=== PATIENT | male | born 1970 | race Caucasian/White ===

== ENCOUNTER 2024-07-26 09:01 | Emergency (ER) | payer OTHER, SELFPAY ==
--- NOTE | ~2024-07-26 | CT_ITS ---
EXAMINATION: CTA chest PE protocol DATE: 07/26/2024 11:24 INDICATION: Chest pain. Shortness of breath. TECHNIQUE: Computed tomography angiography (CTA) of the chest was performed with 100 mL Omnipaque-350 intravenous contrast timed to evaluate the pulmonary arteries. Coronal maximum intensity projection 3D-reconstructions were created by the technologist. Automated exposure control and iterative reconst ruction technique were employed. The dose-length product was 833.74 mGy-cm. COMPARISON: Chest 2 views 07/26/2024 FINDINGS: There is mild atelectasis on the left. No pleural effusion. The heart size is normal. No pe ricardial effusion. There is no pulmonary embolus. There is an 18 mm mass in left adrenal gland measu ring low attenuation, consistent with an adenoma. There is a 6 mm cyst in the liver. There is severe cervical spondylosis and mild thoracic spondylosis. There is levoscoliosis of upper thoracic spine. IMPRESSION: 1. No pulmonary embolus. Reviewed, dictated and finalized at location A. OWS SYSTEM ADMIN IMPRESSION: 1. No pulmonary embolus.
--- NOTE | ~2024-07-26 | XR_ITS ---
EXAMINATION: XR chest 2V DATE: 07/26/2024 09:31 INDICATION: Chest pain. Cough. Congestion. TECHNIQUE: Frontal and lateral views of the chest were obtained. COMPARISON: None. FINDINGS: There is mild atelectasis in left lower lung zone. No pleural effusion or pneumothorax. The heart size is normal. IMPRESSION: 1. Mild atelectasis in left lower lung zone. Reviewed, dictated and finalized at location A. [employer] QC
--- OUTSIDE RECORDS SUMMARY | 2024-07-26 09:05 | XMS_ITS | Continuity of Care Document ---
Author Organization [facility] Address [address] [place] [id number] Phone Care Team Providers Care Crepe Sole Scourer Name Role Phone Paulo Rm MD Unavailable Unavailable Allergies, Adverse Reactions, Alerts Substance Reaction Status Criticality No Known allergies Medications Medication Instructions Dosage Effective Dates (start - stop) Status Comments Metoprolol Tartrate 25 mg Tab - Active Procedures Procedure Date Eye Exam Established Pt After Cataract Laser Surgery No Charge Refraction Post-op Follow-up Visit Post-op Follow-up Visit Post-op Follow-up Visit Remove Cataract, Insert Lens Limbal Relaxing Incision IOLMaster Office/outpatient Visit, [facility] Echo Exam Of Eye Advance Directives Directive Yes / No Effective Date File Name Resuscitation Not Answered N/A N/A Life Support Not Answered N/A N/A Intubation Not Answered N/A N/A Antibiotics Not Answered N/A N/A IV Fluid Support Not Answered N/A N/A Tube Feed Not Answered N/A N/A Other Directive N/A N/A WARNING:The information contained in this section is historical and is provided for information only and does not constitute a legal document or any assurance that the information is still accurate. Please verify the information with the reinoso of the legal document before using it for clinical purposes. Encounters Encounter Description Practice Location Reason(s) For Visit Diagnoses Date Provider Providers Copied on [facility], [address], [place], [place], [address], [place] tel:[phone] [place] Professional blurry vision (chief complaint) No Information Apr-1 0-201 3 Jag Bates. [address] [facility], [address], [place], [place], [address], [place]. tel:[phone] [facility], [address], [place], [place], [address], [place] tel:[phone] [place] Professional No Information Apr-0 1-201 3 Jag Bates. [address] [facility], [address], [place], [place], [address], [place]. tel:[phone] [facility], [address], [place], [place], [address], [place] tel:[phone] [place] Professional No Information Apr-0 8-201 0 Sarahy Angy. [address], [address], [place], [address], [place]. tel:[phone] [facility], [address], [place], [place], [address], [place] tel:[phone] [place] Professional No Information Mar-1 8-201 0 Sarahy Angy. [address], [address], [place], [address], [place]. tel:[phone] [facility], [address], [place], [place], [address], [place] tel:[phone] [place] Professional No Information Mar-1 1-201 0 Sarahy Angy. [address], [address], [place], [address], [place]. tel:[phone] [facility], [address], [place], [place], [address], [place] tel:[phone] [facility] [place] No Information Aug- 0-201 0 Sarahy Angy. [address], [address], [place], [address], [place]. tel:[phone] [facility], [address], [place], [place], [address], [place] tel:[phone] SEC [place] No Information Aug-0 4-201 0 Sarahy Angy. [address], [address], [place], [address], [place]. tel:[phone] Referring Provider: Angy Weathers, [address], [place], [place], [facility]. tel:[phone] Office/outpa tient Visit, [facility], [address], [place], [place], [address], [place] tel:[phone] [facility] Professional No Information 5-201 0 Sarahy Angy. [address], [address], [place], [address], [place]. tel:[phone] Family History Family Member Type Diagnosis Age At Onset No Information Payers Payer name Insurance type Covered republican ID Rosa todd(s) [facility] CI [id number] Social History Type Description Quantity Date Captured Comments Alcohol Use Details 1 drink weekly Caffeine Use Details 4 cups per day Tobacco Use Status No Information Smoking Status No Information Sex Male Chief Complaint And Reason For Visit From encounter dated '09/15/2012 13:00'. blurry vision (chief complaint) Reason For Referral Reason For Referral No Information History Of Present Illness Encounter Date Complaint History Of Prese nt Illness No Information Functional Status Date Functional Assessmen t No Information Instructions Date Instruction Additional Infor mation clouded pc od-yag pc done - vis postop 20/25 and nl iop - will see Dr. Noriega in a mth Assessments Type Assessment Date No Information Patient Care Teams Name Effective Dates (start - stop) Status Members No Information
--- OUTSIDE RECORDS SUMMARY | 2024-07-26 09:06 | XMS_ITS | Clinical Summary ---
Author Organization [facility] Address [address] [place] [address] Phone Care Team Providers Care Record Changer Tester Name Role Phone SONIA ALCANTARA MD Primary Care Provider [phone] Reason for Visit and Chief Complaint CHART UPDATE Problems Includes: Problems addressed during this encounter and other active Problems All Visits Onset Date Resolved Date Provider Condition S tatus Presence of Artificial Knee Joint 04/21/2023 JADEN Stewart Active Last Documented On 04/21/2023 7:21AM ; [facility] Note: Left TKA on 04/20/[address] 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 DORI León MD Active Last Documented On 1 11:20AM ; [facility] Hypertension Systemic 02/01/2021 DORI HOWARD MD Active Last Documented On 1 11:21AM ; [facility] Plan of Treatment Pending Tests Order Diagnosis Results Due Ordering P rovider Therapy - Physical Therapy Knee Presence of left artificial knee joint 07/20/23 THUY DENSON DO Last Documented On 4 3:35PM ; [facility] Assessments Includes: Assessments from this encounter No Assessments Recorded Medical Equipment - Implanted Devices Includes: Current Devices No Medical Equipment Recorded Medications Includes: Medications discussed during this encounter and other current Medications Discontinued / Stopped on this date JADEN Stewart on 05/04/2023 HYDROcodone-Acetaminophen 7. 5-325 MG Oral Tablet Provider: JADEN Stewart Diagnosis: Presence of left artificial knee joint Last Documented On 07/20/2023 9:56AM By VALERIA ESPOSITO LPN ; [facility] Celecoxib 200 MG Oral Capsule Provider: JADEN Stewart Diagnosis: Presence of left artificial knee joint Last Documented On 07/20/2023 9:56AM By VALERIA ESPOSITO LPN ; [facility] Current Medications (continue as prescribed) Aspirin 81 81 MG Oral Tablet Delayed Release Provider: Diagnosis: Last Documented On 03/30/2023 2:51PM By Lizzie BROWN ; [facility] Metoprolol Tartrate 50 MG Oral Tablet 01/31/2023 Pro vider: JENIFER S DATHU ACNP Diagnosis: Last Documented On 03/30/2023 2:51PM By Lizzie BROWN ; [facility] Medications Administered Includes: Administered Medications from this encounter No Administered Medications Recorded Results Includes: Results discussed during this encounter No Results Recorded For Specified Dates History of Present Illness Includes: History of Present Illness from this encounter No History of Present Illness Recorded Social History No Social History Recorded - Smoking Status Unknown Medical History Includes: Medical History addressed during this encounter No Medical History Recorded Family History Includes: Family History addressed during this encounter No Family History Recorded Review of Systems Includes: Review of Systems from this encounter No Review of Systems Recorded Mental Status Includes: Mental Status from this encounter No Mental Status Recorded Functional Status Includes: Functional Status from this encounter No Functional Status Recorded Physical Exam Includes: Physical Exam from this encounter No Physical Exam Recorded Allergies Includes: Active Allergies Substance Type Reaction Onset Date Resolved Date Statu s Doxycycline Hyclate Allergy Shortness of Breath / Dyspnea 03/30/2023 Active Last Documented On 08/27/2023 2:46PM ; [facility] Note: throat closing Encounters Encounter Provider Location Date Check-In Time Check-Out Time Diagnosis CHART UPDATE THUY DENSON 07/20/2023 11:07AM 11:59PM Insurance Includes: Active Insurance Policies Plan Name Member ID Group # Subscriber Relationship Effect aisha Dates 1 - [facility] [id number] HEAVEN HAIR JR Self Clinical Notes Includes: Clinical Notes from this encounter No Clinical Notes Recorded
--- OUTSIDE RECORDS SUMMARY | 2024-07-26 09:06 | XMS_ITS | Clinical Summary ---
Author Organization [facility] Address [address] [place] [address] Phone Care Team Providers Care Records Analysis Manager Name Role Phone SONIA ALCANTARA MD Primary Care Provider [phone] Reason for Visit and Chief Complaint Date of surgery: 04/20/2023, visit for: exam following treatment, Heaven returns for his left total knee arthroplasty on 04/20/23. He is here basically for a motion check. He has finished all of his formal physical therapy. He returned to work on 07/20/23. At his last visit he was lacking just the last few degrees of motion so he continued to work hard at home to reach this. He reports he is doingvery well without any problems, visit for: Left Knee Pain - The Chief Complaint is: 4.5 MO POST LTKA, PT HAS ALREADY RTW AND HAS COMPLETED THERAPY, NO CONCERNS AND IS DOING WELL Problems Includes: Problems addressed during this encounter and other active Problems All Visits Onset Date Resolved Date Provider Condition S tatus Presence of Artificial Knee Joint 04/21/2023 JADEN Stewart Active Last Documented On 04/21/2023 7:21AM ; [facility] Note: Left TKA on 04/20/[address] 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 He was once again made aware of antibiotic prophylaxis for a total joint to be done throughout his lifetime. He is very pleased with the out come of his surgery. He will be seen back at the one year ebenezer from surgery with repeat radiographs. - Last Documented On 08/27/2023 2:57PM ; [facility] Instructions to patient No reduced physical activity -release to full activities Last Documented On 4 2:54PM ; [facility] Education and Decision Aids were provided during visit for: Patient education about orth opedic activities Last Documented On 4 2:54PM ; [facility] Assessments Includes: Assessments from this encounter Findings Intact left knee prosthesis. - Last Documented On 08/27/2023 2:57PM ; [facility] Instructions Includes: Instructions from this encounter Instructions to patient No reduced physical activity -release to full activities Last Documented On 4 2:54PM ; [facility] Education and Decision Aids were provided during visit for: Patient education about orth opedic activities Last Documented On 4 2:54PM ; [facility] Medical Equipment - Implanted Devices Includes: Current Devices No Medical Equipment Recorded Medications Includes: Medications discussed during this encounter and other current Medications Current Medications (continue as prescribed) Aspirin 81 81 MG Oral Tablet Delayed Release 3 Provider: Diagnosis: Last Documented On 03/30/2023 2:51PM By Lizzie BROWN ; [facility] Metoprolol Tartrate 50 MG Oral Tablet 01/31/2023 Pro vider: JENIFER CARDOSO ACNP Diagnosis: Last Documented On 03/30/2023 2:51PM By Lizzie BROWN ; [facility] Past Medications on file Lovenox 30 MG/0.3ML Injection Solution Prefilled Syringe 04/21/2023 - 05/05/2023 Provider: JADEN Stewart Diagnosis: Presence of left artificial knee joint as directed one injection tw ice a day for 2 weeks after surgery Last Documented On 3 7:36AM By Jaden Manrique PA-C ; [facility] Medications Administered Includes: Administered Medications from this encounter No Administered Medications Recorded Vital Signs Includes: Vital Signs from this encounter Vital Name 08/27/2023 02:47P Height (in) 69 Last Documented: On 08/27/2023 2:47PM ; [facility] Results Includes: Results discussed during this encounter No Results Recorded For Specified Dates History of Present Illness Includes: History of Present Illness from this encounter GISELE HAIR is a 53 year old male. - Allergy list reviewed - Medication list reviewed - No left knee joint pain - No left knee joint swelling - No left knee joint stiffness Social History Description Last Updated Social history unchanged 11/06/2022 Last Documented On 4 2:46PM ; [facility] Tobacco non-user 01/09/2022 Last Documented On 4 2:46PM ; [facility] . alchol-none, tobacco - none, dr stinson- none 09/21/2019 Last Documented On 4 2:46PM ; [facility] Smoking status : Never smoker 08/23/2019 Last Documented On 4 2:46PM ; [facility] Procedures and Surgical History Includes: Procedures from this encounter Procedures Code Diagnosis Performing Provider Service L ocation Service Date Previously treated with Surgery which helped Last Documented On 4 2:50PM ; [facility] Previously treated with Medication-which helped Last Documented On 4 2:50PM ; [facility] Previously treated with Physical Therapy -which helped Last Documented On 4 2:50PM ; [facility] x-ray of knee was performed intact left knee implant Last Documented On 4 2:56PM ; [facility] reviewed a complete knee x-ray with standing vie ws -of left knee [id number] Last Documented On 4 2:56PM ; [facility] RADIOGRAPH READING: Radiogra phs obtained previously of the left knee are reviewed, These show a Georgette PS knee is in good position and alignment. No evidence of loosening Last Documented On 4 2:56PM ; [facility] Medical History Includes: Medical History addressed during this encounter Description Last Updated Prior surgery 08/27/2023 Last Documented On 4 2:57PM ; [facility] Total Left Knee Replacement on 04/20/[address] Alvaro Denson 04/21/2023 Last Documented On 4 2:46PM ; [facility] Has had no fall in the last 12 months. 0 01/09/2022 Last Documented On 4 2:46PM ; [facility] Family History Includes: Family History addressed during this encounter Description Last Updated Family history unchanged 11/06/2022 Last Documented On 4 2:46PM ; [facility] CAD, prostate cancer 09/21/2019 Last Documented On 4 2:46PM ; [facility] Review of Systems Includes: Review of Systems from this encounter Systemic: No recent weight change. Head: No headache. Endocrine: No excessive sweating. Skin: No pruritus. Mental Status Includes: Mental Status from this encounter Description Oriented to time, place, and person Functional Status Includes: Functional Status from this encounter No Functional Status Recorded Physical Exam Includes: Physical Exam from this encounter Allergies Includes: Active Allergies Substance Type Reaction Onset Date Resolved Date Statu s Doxycycline Hyclate Allergy Shortness of Breath / Dyspnea 03/30/2023 Active Last Documented On 08/27/2023 2:46PM ; [facility] Note: throat closing Encounters Encounter Provider Location Date Check-In Time Check- Out Time Diagnosis FOLLOW UP ALVARO DENSON DO [facility] 4 2:44PM 2:56PM Assessment [use For S.o.a.p. 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 Denson Chief Complaint The Chief Complaint is: 4.5 [place] POST LTKA, PT HAS ALREADY RTW AND HAS COMPLETED THERAPY, NO CONCERNS AND IS DOING WELL. Reason For Visit Visit for: Left Knee Pain. Visit for: exam following treatment and Date of surgery: 04/20/2023. Heaven returns for his left total knee arthroplasty on 04/20/23. He is here basically for a motion check. He has finished all of his formal physical therapy. He returned to work on 07/20/23. At his last visit he was lacking just the last few degrees of motion so he continued to work hard at home to reach this. He reports he is doing very well without any problems. History of Present Illness HEAVEN HAIR is a 53 year old male. - Allergy list reviewed - Medication list reviewed - No left knee joint pain - No left knee joint swelling - No left knee joint stiffness Current Medication - Aspirin 81 81 MG Oral Tablet Delayed Release One tablet daily 30 days, 0 refills - Metoprolol Tartrate 50 MG Oral Tablet One tablet twice a day 90 days, 0 refills Past Medical/Surgical History Reported: Surgical / Procedural: Prior surgery. Physical Trauma: Has had no fall in the last 12 months. Total Left Knee Replacement on 04/20/[address] Alvaro Denson. Previous Therapy Previously treated with Surgery which helped. Previously treated with Medication-which helped. Previously treated with Physical Therapy-which helped. Social History Social history unchanged. Tobacco use: Tobacco non-user. Smoking status: Never smoker. . alchol-none, tobacco - none, drugs- none. Allergies - Doxycycline Hyclate Reaction: Shortness of Breath / Dyspnea Family History Family history unchanged CAD, prostate cancer Review Of Systems Systemic: No recent weight change. Head: No headache. Endocrine: No excessive sweating. Skin: No pruritus. Physical Findings - Vitals taken 08/27/2023 02:47 pm Height 69 in General Appearance: - Well developed. - In no acute distress. Eyes: General/bilateral: - Eyes: normal. Musculoskeletal System: Knee: Left Knee: - Knee showed full range of motion. - Normal. - Active motion was normal. Neurological: - Oriented to time, place, and person. Motor (Strength): - No weakness of the left knee was observed. Gait And Stance: - Normal. Skin: - Normal. Injury / Incision Site: - Left knee showed an incision well healed, well approximated surgical total knee incision. Examination shows good motion and strength of the knee. There is a small mechanical click, most likely due to the fact that this is a PS mechanical knee. Tests Imaging: X-Ray Knee: Reviewed a complete knee x-ray with standing views -of left knee. X-ray of knee was performed intact left knee implant. RADIOGRAPH READING: Radiographs obtained previously of the left knee are reviewed, These show a Sanderson PS knee is in good position and alignment. No evidence of loosening. Assessment Intact left knee prosthesis. Counseling/Education - No reduced physical activity -release to full activities - Patient education about orthopedic activities Plan - Home exercises - Work restrictions None I discussed with Heaven that even though he is out of his post op period he can continue to do exercises to help his knee. He was once again made aware of antibiotic prophylaxis for a total joint to be done throughout his lifetime. He is very pleased with the out come of his surgery. He will be seen back at the one year ebenezer from surgery with repeat radiographs. Health Reminders - Assess Need for CT Lung Screen satisfied 08/27/2023. - Assess Tobacco Use satisfied 08/27/2023.
--- OUTSIDE RECORDS SUMMARY | 2024-07-26 09:06 | XMS_ITS | Referral Summary ---
Author Organization [facility] Address [address] [place] [address] Care Team Providers Care Construction Pit Worker Name Role Phone Ange Schmitt Primary Care Provider Encounters Date Type Department Care Team Description 06/28/2024 2:30 PM DIGITAL PROJECT COORDINATOR Office Visit [place] [facility] at [address] [place] [address] Rosalind Franco NP Morbid (severe) obesity due to excess calories (HCC) (Primary Dx); Essential hypertension; ALLYSON (obstructive sleep apnea) from Last 3 Months Allergies No known active allergies Medications aspirin 81 mg enteric coated tablet Take 1 tablet (81 mg total) by mouth daily Active metoprolol (LOPRESSOR) 100 mg tablet Take 1 tablet (100 mg total) by mouth 2 (two) times a day 180 tablet 3 5 06/28/19 26 Active atorvastatin (LIPITOR) 10 mg tablet Take 1 tablet (10 mg total) by mouth daily 90 tablet 3 3 06/28/19 25 Discontinued metoprolol tartrate (LOPRESSOR) 50 mg immediate release tablet Take 1 tablet (50 mg total) by mouth 2 (two) times a day 180 tablet 3 3 06/28/19 25 Discontinued Active Problems Problem Noted Date Diagnosed Date Essential hypertension 06/28/2024 Morbid (severe) obesity due to excess calories 1 Body mass index (BMI) 45.0-49.9, adult 2 Chest pain due to myocardial ischemia 03/27/2020 Lower extremity edema 03/27/2020 Acute maxillary sinusitis 03/23/2015 Overview (09/11/2016): Acute maxillary sinusitis, recurrence not specified Social History Tobacco Use Types Packs/Day Years Used Date Smoking Tobacco: Never Smokeless Tobacco: Never Tobacco Cessation:Counseling Given: Not Answered Alcohol Use Standard Drinks/Week Comments Not Currently 0 (1 standard drink = 0.6 oz pur e alcohol) Sex and Gender Information Value Date Recorded Sex Assigned at Not on file Legal Sex Male 1:39 PM DIGITAL PROJECT COORDINATOR Gender Identity Not on file Sexual Orientation Not on file Last Filed Vital Signs Vital Sign Reading Time Taken Comments Blood Pressure 151/91 06/28/2024 2:24 PM DIGITAL PROJECT COORDINATOR Pulse 76 06/28/2024 2:24 PM DIGITAL PROJECT COORDINATOR Temperature 37.1 C (98.7 F) 03/31/2022 2:23 PM CDT Respiratory Rate 18 06/28/2024 2:24 PM DIGITAL PROJECT COORDINATOR Oxygen Saturation 95% 02/03/2022 6:36 PM CDT Inhaled Oxygen Concentration - - Weight 121.6 kg (268 lb) 06/28/2024 2:24 PM DIGITAL PROJECT COORDINATOR Height 175.3 cm (5' 9 ) 06/28/2024 2:24 PM DIGITAL PROJECT COORDINATOR Body Mass Index 39.58 06/28/2024 2:24 PM DIGITAL PROJECT COORDINATOR Plan of Treatment Not on file Insurance [facility] CHOICE PLUS [id number] CHOICE PLUS Care Teams Construction Pit Worker Relationship Specialty Start Date End Date Ange Schmitt PA [address] [place] [id number] PCP - General Physician Manager Maintenance 04/06/23
--- OUTSIDE RECORDS SUMMARY | 2024-07-26 09:06 | XMS_ITS | Clinical Summary ---
Author Organization [facility] Address [address] [place] [address] Phone Care Team Providers Care Distribution Center Supervisor Name Role Phone Provider, None Primary Care Provider Unavailabl e Allergies No known active allergies Medications METOPROLOL TARTRATE PO Take 10 mg by mouth 2 times daily. Active promethazine-dex tromethorphan (PROMETHAZINE-DM ) 6.25-15 MG/5ML Syrup Take 5 mL by mouth every 4 hours as needed for Cough. 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 Temperature 36.7 C (98 F) 07/24/2017 10:22 AM WEFT 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 Respiratory Rate 16 07/24/2017 10:22 AM WEFT 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 Oxygen Saturation 96% 07/24/2017 10:22 AM WEFT 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 Inhaled Oxygen Concentration - - Weight 130.2 kg (287 lb) 07/24/2017 10:22 AM WEFT 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 Height 175.3 cm (5' 9 ) 07/24/2017 10:22 AM WEFT 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 Body Mass Index 42.38 07/24/2017 10:22 AM WEFT 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 Plan of Treatment Health Maintenance Due Date Last Done Comments Hepatitis C Virus (HCV) Screening 1970 TdaP Immunization 1970 Hepatitis B Immunization (1 of 3 - 19+ 3-dose series) 1989 Colonoscopy 2015 Colorectal Cancer Screening 2015 Cologuard 2020 Immunochemical Fecal Occult Blood 2020 Pneumococcal Immunization (5 0+ years) (1 of 1 - PCV) 2020 Zoster Immunization (1 of 2) 2020 Influenza Immunization (#1) 2024 SARS-COV-2 Immunization (1 - 2023- season) 2024 Respiratory Syncytial Virus (RSV) Immunization (Adult) (1 - 1-dose 75+ series) 2045 Meningococcal Immunization (ACWY) Aged Out No longer eligible based on patient's age to complete this topic Pneumococcal Immunization Combined Aged Out No longer eligible based on patient's age to complete this topic Rotavirus Immunization Aged Out No lo nger eligible based on patient's age to complete this topic Care Teams Distribution Center Supervisor Relationship Specialty Start Date End Date Provider, None [place] PCP - General 07/24/17
--- OUTSIDE RECORDS SUMMARY | 2024-07-26 09:06 | XMS_ITS | Clinical Summary ---
Author Organization [facility] Address [address] [place] [address] Care Team Providers Care Product Builder Name Role Phone Unknown, Provider Primary Care Provider Unavaila ble Source Comments [facility],non-owned Affiliates and Associated Physician Practices is amultiple site organization consisting of ambulatory clinics and hospital sitesin [place], [place], [place] and [place]. This disclosure is being madepursuant to the Care Everywhere program and may not contain all information available regarding this patient. Last updated 18.[place] Allergies No known active allergies Medications * Be aware that medications may not be up to date on this document. Alwaysverify current medications with the patient. 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 Respiratory Rate 18 06/02/2016 4:17 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 Oxygen Saturation 97% 06/02/2016 4:17 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 Inhaled Oxygen Concentration - - Weight 124.7 kg (275 lb) 06/02/2016 4:17 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 Height 175.3 cm (5' 9 ) 06/02/2016 4:17 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 Body Mass Index 40.61 06/02/2016 4:17 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 Plan of Treatment Health Maintenance Due Date Last Done Comments COLOGBEBORD (AGES 45-75) - COL ON CA SCREENING 1970 COLON MONITORING 1970 COLONOSCOPY - COLON CA SCREENING 1970 CT COLONOGRAPHY - COLON CA SCREENING 1970 Colorectal Cancer Screening 1970 FIT - COLON CA SCREENING 1970 FLEX SIG - COLON CA SCREENING 1970 LIPID TESTING 1970 HIV SCREENING 1985 HEPATITIS C SCREENING 03/02/1988 DTAP/TDAP/TD VACCINES (1 - Tdap) 1989 HEPATITIS B VACCINE (1 of 3 - 19+ 3-dose series) 1989 PNEUMOCOCCAL VACCINE 50+ (1 of 1 - PCV) 2020 ZOSTER VACCINE (1 of 2) 2020 COVID-19 VACCINE (1 - 2023-2 5 season) 2024 INFLUENZA VACCINE (#1) 2024 DEPRESSION SCREENING 06/08/2024 HIB VACCINE Aged Out No longer eligi ble based on patient's age to complete this topic HPV VACCINE Aged Out No longer eligi ble based on patient's age to complete this topic MENINGOCOCCAL (Group B) VACCINE Aged Out No longer eligible based on patient's age to complete this topic MENINGOCOCCAL VACCINE Aged Out No henry marium eligible based on patient's age to complete this topic PNEUMOCOCCAL VACCINE Aged Out No long er eligible based on patient's age to complete this topic Care Teams Product Builder Relationship Specialty Start Date End Date Unknown, Provider PCP - General 06/02/16
--- OUTSIDE RECORDS SUMMARY | 2024-07-26 09:06 | XMS_ITS ---
Author Organization [facility] Address [address] [place] [address] Phone Care Team Providers Care Etl Consultant Name Role Phone SONIA ALCANTARA MD Primary Care Provider [phone] Problems Includes: Active, inactive, and resolved Problems All Visits Onset Date Resolved Date Provider Condition S tatus Presence of Artificial Knee Joint 04/21/2023 JADEN Stewart Active Last Documented On 04/21/2023 7:21AM ; [facility] Note: Left TKA on 04/20/23 by [...] [facility] Plan of Treatment Findings Encounter Date I discussed with Heaven that even though [...] one year ebenezer from surgery with repeat radiographs FOLLOW UP with ALVARO DENSON DO 08/27/2023 Last Documented On 4 2:57PM ; [facility] Ordered home exercises FOLLOW UP with ALVARO RENO DO 08/27/2023 Last Documented On 4 2:57PM ; [facility] Ordered work restrictions None FOLLOW UP with KIMBERLEE Huang HANNAHROWDY 08/27/2023 Last Documented On 4 2:57PM ; [facility] I discussed with Heaven that he he still has some time left to gain some more flexion. I want him to continue doing his exercises at home. He is ready to return to work no restrictions. I did remind him of antibioic prophylaxis for the rest of his lifetime. I also want him to finish any therapy sessions that he has left. He still has a little warmth on the knee, which is to be expected. This can last for quite a few months post op. I am going to see him back at his one year ebenezer with repeat radiographs. We did discuss continuing some aggressive therapy to make sure he gains all the motion he can. He would like to do this as well. I will see him back in six weeks to check his progress FOLLOW UP with ALVARO Sal DENSON DO 07/20/2023 Last Documented On 4 11:07AM ; [facility] Ordered fit for work FOLLOW UP with ALVARO Huang JULIETTE DO 07/20/2023 Last Documented On 4 11:07AM ; [facility] Ordered follow-up for re-exa mination twelve months FOLLOW UP with ALVARO Huang JULIETTE PEDROZA 07/20/2023 Last Documented On 4 11:07AM ; [facility] Ordered home exercises FOLLOW UP with ALVARO Huang HANNAH RENO DO 07/20/2023 Last Documented On 4 11:07AM ; [facility] Ordered work restrictions FOLLOW UP with ALVARO Huang JULIETTE DO 07/20/2023 Last Documented On 4 11:07AM ; [facility] I discussed with Heaven that at this point he is very close to being where I would prefer he be. I am going to send him back to formal physical therapy 2-3 times a week for four to six more weeks to work on some more aggressive ROM. He still has time to gain motion. 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 He will be kept off work as he states there is no light duty. I will see him back in four to six weeks after therapy and depending on how well he does, he may be able to return to work at that point. I want him to work on exercises at home as well FOLLOW UP with ALVARO DENSON DO 06/11/2023 Last Documented On 4 1:59PM ; [facility] Ordered home exercises FOLLOW UP with ALVARO Huang HANNAH RENO DO 06/11/2023 Last Documented On 4 1:59PM ; [facility] Ordered physical therapy FOLLOW UP with ALVARO Huang HANNAHROWDY DO 06/11/2023 Last Documented On 4 1:59PM ; [facility] I am still concerned based o n his lack of significant development with flexion. He has increased his range of motion, but he is still in the 70's in regards to his flexion at six weeks. I would like for him to talk with Dr. Denson regarding the potential for a manipulation under anesthesia for his left total knee. We will arrange that appointment for follow-up FOLLOW UP with JADEN Stewart 06/02/2023 Last Documented On 3 1:32PM ; [facility] I did have a long conversati on with him today about attendance with physical therapy and working through discomfort with his therapy sessions at home. Right now, he is quite a bit behind schedule in regards to his range of motion for flexion. We discussed that when he is walking, he needs concentrate on bending his knee. I did review several different exercises that he can do at home easily to work on flexion and extension both. He will continue with compression therapy with his Iceman as well as continue with Celebrex. He will finish out the last remaining few doses of his Lovenox. I will renew his hydrocodone for him. We will plan on seeing him back in four weeks. 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 He was shown a model of the [place] total knee as well. I did go over the gap/balance technique as well. All questions were asked and answered. He is aware of the intense formal phyiscal therapy that is required as well. He will be seen back following surgery for a two week post op appointment FOLLOW UP with ALVARO Sal JULIETTE PEDROZA 02/12/2023 Last Documented On 3 3:18PM ; [facility] Ordered home exercises FOLLOW UP with ALVARO Huang HANNAH RENO DO 02/12/2023 Last Documented On 3 3:18PM ; [facility] Ordered physical therapy FOLLOW UP with ALVARO YOUNGROWDY PEDROZA 02/12/2023 Last Documented On 3 3:18PM ; [facility] Requested total knee arthroplasty -Left FOLLOW U P with ALVARO YOUNGROWDY PEDROZA 02/12/2023 Last Documented On 3 3:18PM ; [facility] I discussed with Heaven that prior to ever offering any surgical intervention, his BMI will have to come down to 40. I explained to him in detail why a BMI over 40 is not a good surgical candidate. I also went over with him ways to work on weight loss. He states he tries to just cut out junk food and [facility] at [facility] but after so long his knee hurts him so bad he has to stop. I did describe to him the KETO diet plan as well to help with weight loss. Another discussion that was had today includes the fact that due to Heaven's young age, the chances of him having to have a revision total knee earlier is much greater . I explained to him that the results following a revision is less than following a primary replacement. I have encouraged him to continue working hard on weight loss and exercise. I did offer him a left knee cortical steroid injection today to hopefully give him some relief while he works on weight loss. He is willing today to proceed with the injection FOLLOW UP with ALVARO DENSON DO 11/06/2022 Last Documented On 3 2:47PM ; [facility] Ordered home exercises FOLLOW UP with ALVARO Huang HANNAH RENO DO 11/06/2022 Last Documented On 3 2:47PM ; [facility] Ultimately, he wants to have a left knee replacement. We did discuss the postoperative course involved with the left knee replacement. He wants to proceed. I discussed with him that he would need a surgical discussion with Dr. Denson in order to have that procedure. He has not had injection therapy. We did discuss that with his young age as well as his BMI being above 40, that it would likely be recommended that he optimize conservative therapies prior to any surgical intervention. He is set on potentially having surgery in December. We did discuss that he would need to lose weight. Currently, his BMI was over 43 at today's visit ORTHO ESTABLISHED PATIENT with JADEN Stewart 09/17/2022 Last Documented On 3 4:18PM ; [facility] Ordered follow-up visit 3 mon NEW PATIENT VISIT with DORI HILL MD 08/23/2019 Last Documented On 0 1:19PM ; [facility] Ordered return to the clinic if condition worsens or new symptoms arise NEW PATIENT VISIT with DORI HILL MD 08/23/2019 Last Documented On 0 1:19PM ; [facility] PLAN [Use for s.o.a.p. note free text] NEW PATIENT VISIT with DORI HILL MD 08/23/2019 Last Documented On 0 1:19PM ; [facility] Instructions to patient No reduced physical activity -release to full activities Last Documented On 4 2:54PM ; [facility] No reduced physical activity -release to full activities Last Documented On 4 11:04AM ; [facility] No reduced physical activity -release to full activities Last Documented On 4 11:04AM ; [facility] Watch for signs/symptoms of infection Last Documented On 4 11:04AM ; [facility] Intervention and counseling on cessation of tobacco use Last Documented On 3 10:39AM ; [facility] Intervention and counseling on cessation of tobacco use Last Documented On 3 2:52PM ; [facility] Intervention and counseling on cessation of tobacco use Last Documented On 3 2:00PM ; [facility] Intervention and counseling on cessation of tobacco use Last Documented On 1 2:13PM ; [facility] Education and Decision Aids were provided during visit for: Patient education about orth opedic activities Last Documented On 4 2:54PM ; [facility] Patient education about orth opedic activities Last Documented On 4 11:04AM ; [facility] Post-op teaching Last Documented On 4 11:04AM ; [facility] Post-op teaching Last Documented On 4 1:50PM ; [facility] Patient education about orth opedic activities Last Documented On 3 3:01PM ; [facility] Patient education about orth opedic activities Last Documented On 3 2:45PM ; [facility] Assessments Includes: Assessments for all patient encounters Findings Encounter Date Intact left knee prosthesis FOLLOW UP with ALVARO DENSON DO 08/27/2023 Last Documented On 4 2:57PM ; [facility] Intact prosthesis post op FOLLOW UP with ALVARO DENSON DO 07/20/2023 Last Documented On 4 11:07AM ; [facility] Assessment of activities of daily living FOLLOW UP with ALVARO DENSON DO 07/20/2023 Last Documented On 4 11:07AM ; [facility] Intact prosthesis post op FOLLOW UP with ALVARO Sal JULIETTE PEDROZA 06/11/2023 Last Documented On 4 1:59PM ; [facility] Assessment of presence of ar tificial knee joint FOLLOW UP with JADEN Stewart 06/02/2023 Last Documented On 3 1:32PM ; [facility] Assessment of presence of ar tificial knee joint FOLLOW UP with JADEN Stewart 05/04/2023 Last Documented On 3 1:49PM ; [facility] [R39.15 - Urgency of urinati on] urinary urgency HOSPITAL FOLLOW UP EXAM with MADEILNE LEZAMA PA-C 04/28/2023 Last Documented On 3 3:48PM ; [facility] Assessment of presence of ar tificial knee joint HOSPITAL FOLLOW UP EXAM with MADELINE LEZAMA PA-C 04/28/2023 Last Documented On 3 3:48PM ; [facility] Assessment of presence of ar tificial knee joint RX ISSUE/REFILL with JADEN Stewart 04/21/2023 Last Documented On 3 7:25AM ; [facility] [Z01.818 - Encounter for ot er preprocedural examination] Pre-op exam PREOP EXAM with MADELINE LEZAMA PA-C 03/30/2023 Last Documented On 3 8:45AM ; [facility] Localized primary osteoarthr itis of left knee PREOP EXAM with MADELINE STARR-C 03/30/2023 Last Documented On 3 8:45AM ; [facility] Osteoarthritis of knee -left FOLLOW UP with KEVI N G KOTH DO 02/12/2023 Last Documented On 3 3:18PM ; [facility] Osteoarthritis of left knee FOLLOW UP with ALVARO G KOTH DO 02/12/2023 Last Documented On 3 3:18PM ; [facility] Osteoarthritis of knee -left FOLLOW UP with KEVI N G KOTH DO 11/06/2022 Last Documented On 3 2:47PM ; [facility] Osteoarthritis of left knee FOLLOW UP with ALVARO G KOTH DO 11/06/2022 Last Documented On 3 2:47PM ; [facility] Localized primary osteoarthr itis of left knee ORTHO ESTABLISHED PATIENT with JADEN Stewart 09/17/2022 Last Documented On 3 4:18PM ; [facility] Plantar verrucous carcinoma PROBLEM VISI T with WILLY BELTRAN [employer] GROUP LEADER-C 01/09/2022 Last Documented On 2 4:35PM ; [facility] [M79.641 - Pain in right choi d] pain in right hand PROBLEM VISIT with MADELINE LEZAMA PA-C 08/28/2021 Last Documented On 2 2:41PM ; [facility] Hypertension PROBLEM VISIT with DORI VIDAL MD 02/01/2021 Last Documented On 1 11:22AM ; [facility] Organic sleep apnea PROBLEM VISIT with DORI KRUGER MD 02/01/2021 Last Documented On 1 11:22AM ; [facility] Instructions Includes: Instructions for all patient encounters Instructions to patient No reduced physical activity -release to full activities Last Documented On 4 2:54PM ; [facility] No reduced physical activity -release to full activities Last Documented On 4 11:04AM ; [facility] No reduced physical activity -release to full activities Last Documented On 4 11:04AM ; [facility] Watch for signs/symptoms of infection Last Documented On 4 11:04AM ; [facility] Intervention and counseling on cessation of tobacco use Last Documented On 3 10:39AM ; [facility] Intervention and counseling on cessation of tobacco use Last Documented On 3 2:52PM ; [facility] Intervention and counseling on cessation of tobacco use Last Documented On 3 2:00PM ; [facility] Intervention and counseling on cessation of tobacco use Last Documented On 1 2:13PM ; [facility] Education and Decision Aids were provided during visit for: Patient education about orth opedic activities Last Documented On 4 2:54PM ; [facility] Patient education about orth opedic activities Last Documented On 4 11:04AM ; [facility] Post-op teaching Last Documented On 4 11:04AM ; [facility] Post-op teaching Last Documented On 4 1:50PM ; [facility] Patient education about orth opedic activities Last Documented On 3 3:01PM ; [facility] Patient education about orth opedic activities Last Documented On 3 2:45PM ; [facility] Medical Equipment - Implanted Devices Includes: Current and historical Devices No Medical Equipment Recorded Medications Includes: Current and historical Medications Current Medications (continue as prescribed) Aspirin 81 81 MG Oral Tablet Delayed Release 3 Provider: Diagnosis: Last Documented On 03/30/2023 2:51PM By Lizzie BROWN ; [facility] Metoprolol Tartrate 50 MG Oral Tablet 01/31/2023 Pro vider: JENIFER S DATILLO ACNP Diagnosis: Last Documented On 03/30/2023 2:51PM By Lizzie BROWN ; [facility] Past Medications on file HYDROcodone-Acetaminophen 7. 5-325 MG Oral Tablet 05/04/2023 - 07/20/2023 Provider: JADEN Stewart Diagnosis: Presence of left artificial knee joint 1-2 every 4-6 hours as needed Last Documented On 07/20/2023 9:56AM By VALERIA ESPOSITO LPN ; [facility] Lovenox 30 MG/0.3ML Injection Solution Prefilled Syringe 04/21/2023 - 05/05/2023 Provider: JADEN Stewart Diagnosis: Presence of left artificial knee joint as directed one injection tw ice a day for 2 weeks after surgery Last Documented On 3 7:36AM By Jaden Manrique PA-C ; [facility] Celecoxib 200 MG Oral Capsule 04/21/2023 - 07/20/2023 Provider: JADEN Stewart Diagnosis: Presence of left artificial knee joint 1 capsule daily Last Documented On 07/20/2023 9:56AM By VALERIA ESPOSITO LPN ; [facility] HYDROcodone-Acetaminophen 7. 5-325 MG Oral Tablet 04/21/2023 - 05/04/2023 Provider: JADEN Stewart Diagnosis: Presence of left artificial knee joint 1-2 every 4-6 hours as needed Last Documented On 3 11:30AM By Jaden Manrique PA-C ; [facility] predniSONE 20 MG Oral Tablet 08/28/2021 - 01/09/2022 Provider: MADELINE Epstein PA-C Diagnosis: Pain in right agustin nd take 3 tabs for 3 days, then 2 tabs for 3 days, then 1 tab for 3 days then stop Last Documented On 01/09/2022 9:17AM By Yash BROWN ; [facility] Metoprolol Succinate ER 25 M G Oral Tablet Extended Release 24 Hour 08/23/2019 - 03/30/2023 Provider: Diagnosis: ONE DAILY Last Documented On 03/30/2023 2:51PM By Lizzie BROWN ; [facility] Medications Administered Includes: Administered Medications in patient's chart No Administered Medications Recorded Vital Signs Includes: Vital Signs from 07/26/2023 through 07/26/2024 Vital Name 08/27/2023 02:47P Height (in) 69 Last Documented: On 08/27/2023 2:47PM ; [facility] Results Includes: Results from 07/26/2023 through 07/26/2024 No Results Recorded For Specified Dates History of Present Illness History of Present Illness not supported for this document type No History of Present Illness Recorded Social History Description Last Updated Social history unchanged 11/06/2022 Last Documented On 3 2:47PM ; [facility] Tobacco non-user 01/09/2022 Last Documented On 2 4:35PM ; [facility] . alchol-none, tobacco - none, dr stinson- none 09/21/2019 Last Documented On 0 1:19PM ; [facility] Smoking status : Never smoker 08/23/2019 Last Documented On 0 1:19PM ; [facility] Medical History Includes: Medical History in patient's chart Description Last Updated Prior surgery 08/27/2023 Last Documented On 4 2:57PM ; [facility] Total Left Knee Replacement on 04/20/[address] Alvaro Denson 04/21/2023 Last Documented On 3 7:25AM ; [facility] Has had no fall in the last 12 months. 0 01/09/2022 Last Documented On 2 4:35PM ; [facility] Family History Includes: Family History in patient's chart Description Last Updated Family history unchanged 11/06/2022 Last Documented On 3 2:47PM ; [facility] CAD, prostate cancer 09/21/2019 Last Documented On 0 1:19PM ; [facility] Review of Systems Review of Systems not supported for this document type No Review of Systems Recorded Mental Status Description Oriented to time, place, and person Functional Status No Functional Status Recorded Physical Exam Physical Exam not supported for this document type No Physical Exam Recorded Allergies Includes: Active, inactive, and resolved Allergies Substance Type Reaction Onset Date Resolved Date Statu s Doxycycline Hyclate Allergy Shortness of Breath / Dyspnea 03/30/2023 Active Last Documented On 08/27/2023 2:46PM ; [facility] Note: throat closing Encounters Includes: Encounters from 07/26/2023 through 07/26/2024 Encounter Provider Location Date Check-In Time Check- Out Time Diagnosis FOLLOW UP ALVARO DENSON DO [facility] 4 2:44PM 2:56PM Assessment [use For S.o.a.p. Note Free Text] Insurance Includes: Active Insurance Policies Plan Name Member ID Group # Subscriber Relationship Effect aisha Dates 1 - [facility] [id number] [employer] Self Clinical Notes Includes: Signed Clinical Notes starting from 06/27/2022 * Progress note Date Encounter Last Documented by 08/27/2023 FOLLOW UP Last documented on 08/27/2023; 2:57 PM, Tarah BROWN; [facility] Active Problems & Conditions - I10 - [...]
--- OUTSIDE RECORDS SUMMARY | 2024-07-26 09:06 | XMS_ITS | Clinical Summary ---
Author Organization [facility] Address [address] [place] [address] Phone Care Team Providers Care Tire Classifier Name Role Phone SONIA ALCANTARA MD Primary Care Provider [phone] Reason for Visit and Chief Complaint visit for: postsurgical exam left knee - The Chief Complaint is: LTKA 04/20/23, improving with PT Problems Includes: Problems addressed during this encounter and other active Problems All Visits Onset Date Resolved Date Provider Condition S tatus Presence of Artificial Knee Joint 04/21/2023 JADEN Stewart Active Last Documented On 04/21/2023 7:21AM ; [facility] Note: Left TKA on 04/20/[address] Denson Osteoarthritis Localized Primary Knee Left 09/17/2022 JADEN Stewart Active Last Documented On 3 4:10PM ; 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 Hypertension Systemic 02/01/2021 DORI HOWARD MD Active Last Documented On 1 11:21AM ; [facility] Plan of Treatment - Physical therapy - Last Documented On 06/11/2023 1:59PM ; [facility] - Home exercises - Last Documented On 06/11/2023 1:59PM ; 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 He will be kept off work as he states there is no light duty. I will see him back in four to six weeks after therapy and depending on how well he does, he may be able to return to work at that point. I want him to work on exercises at home as well. - Last Documented On 06/11/2023 1:59PM ; [facility] Education and Decision Aids were provided during visit for: Post-op teaching Last Documented On 4 1:50PM ; [facility] Assessments Includes: Assessments from this encounter Findings Intact prosthesis post op. - Last Documented On 06/11/2023 1:59PM ; [facility] Instructions Includes: Instructions from this encounter Education and Decision Aids were provided during visit for: Post-op teaching Last Documented On 4 1:50PM ; [facility] Medical Equipment - Implanted Devices Includes: Current Devices No Medical Equipment Recorded Medications Includes: Medications discussed during this encounter and other current Medications Current Medications (continue as prescribed) Aspirin 81 81 MG Oral Tablet Delayed Release 3 Provider: Diagnosis: Last Documented On 03/30/2023 2:51PM By Lizzie BROWN ; [facility] Metoprolol Tartrate 50 MG Oral Tablet 01/31/2023 Pro vider: JENIFER CARDOSO ACNP Diagnosis: Last Documented On 03/30/2023 2:51PM By Lizzie BROWN ; [facility] Past Medications on file Lovenox 30 MG/0.3ML Injection Solution Prefilled Syringe 04/21/2023 - 05/05/2023 Provider: JADEN Stewart Diagnosis: Presence of left artificial knee joint as directed one injection tw ice a day for 2 weeks after surgery Last Documented On 7:36AM By Jaden Manrique PA-C ; [facility] Medications Administered Includes: Administered Medications from this encounter No Administered Medications Recorded Vital Signs Includes: Vital Signs from this encounter Vital Name 06/11/2023 01:08P 06/11/2023 12: 57P Blood Pressure Sitting (mmHg) 146/94 Pulse Rate-Sitting (bpm) 86 Weight (lb) 271 Height (in) 69 Last Documented: On 06/11/2023 1:13PM ; [facility] On 06/11/2023 1:07PM ; [facility] Results Includes: Results discussed during this encounter No Results Recorded For Specified Dates History of Present Illness Includes: History of Present Illness from this encounter HPI HEAVEN HAIR is a 53 year old male. - Allergy list reviewed - Medication list reviewed - Feeling as well as can be expected - No fever - No chills - Knee joint swelling - Knee joint stiffness on the left - Feels better after normal movement - No knee joint pain Heaven is here in post op following his left total knee arthroplasty on 04/20/2023. He has had some difficulty gaining his ROM. He is no longer using a cane or walker. He states he will have a little pain and discomfort at night when he tries to settle down and go to bed. It does not wake him up. He has been doing formal physical therapy. He is here tofya after his last appointment with my PA, Maxime, to discuss whether or not he needs a manipulation under anesthesia. We did have to place a Calera PS total knee at the time of his surgery due to his ligaments not functioning as well as they should with a prosthesis in place Social History Description Last Updated Social history unchanged 11/06/2022 Last Documented On 4 12:57PM ; [facility] Tobacco non-user 01/09/2022 Last Documented On 4 12:57PM ; [facility] . alchol-none, tobacco - none, dr stinson- none 09/21/2019 Last Documented On 4 12:57PM ; [facility] Smoking status : Never smoker 08/23/2019 Last Documented On 4 12:57PM ; [facility] Procedures and Surgical History Includes: Procedures from this encounter Procedures Code Diagnosis Performing Provider Service L ocation Service Date continue physical therapy 90115 Last Documented On 4 1:50PM ; [facility] use of tobacco assessment performed 1000F Last Documented On 4 1:13PM ; [facility] review of medications documented 1160F Last Documented On 4 1:13PM ; [facility] reviewed x-ray of knee RADIO GRAPH READING: Previous radiographs are reviewed of the left knee. These show good position and alignment of the Georgette total knee prosthesis. This is a PS knee. All components remain in good position and alignment Last Documented On 4 1:50PM ; [facility] Medical History Includes: Medical History addressed during this encounter Description Last Updated Total Left Knee Replacement on 04/20/[address] Thuy Denson 04/21/2023 Last Documented On 4 12:57PM ; [facility] Has had no fall in the last 12 months. 0 01/09/2022 Last Documented On 4 12:57PM ; [facility] Family History Includes: Family History addressed during this encounter Description Last Updated Family history unchanged 11/06/2022 Last Documented On 4 12:57PM ; [facility] CAD, prostate cancer 09/21/2019 Last Documented On 4 12:57PM ; [facility] Review of Systems Includes: Review of Systems [...] Active Last Documented On 08/27/2023 2:46PM ; [facility] Note: throat closing Encounters Encounter Provider Location Date Check-In Time Check- Out Time Diagnosis FOLLOW UP THUY DENSON DO [facility] 4 12:51PM 1:57PM Assessment [use For S.o.a.p. Note Free Text] Insurance Includes: Active Insurance Policies Plan Name Member ID Group # Subscriber Relationship Effect aisha Dates 1 - [facility] [id number] HEAVEN HAIR Self Clinical Notes Includes: Clinical Notes from this encounter * Progress note Date Encounter Last Documented by 06/11/2023 FOLLOW UP Last documented on 06/11/2023; 1:59 PM, Tarah BROWN; 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 Denson Chief Complaint The Chief Complaint is: LTKA 04/20/23, improving with PT. Reason For Visit Visit for: postsurgical exam left knee. History of Present Illness HEAVEN HAIR is a 53 year old male. - Allergy list reviewed - Medication list reviewed - Feeling as well as can be expected - No fever - No chills - Knee joint swelling - Knee joint stiffness on the left - Feels better after normal movement - No knee joint pain Heaven is here in post op following his left total knee arthroplasty on 04/20/2023. He has had some difficulty gaining his ROM. He is no longer using a cane or walker. He states he will have a little pain and discomfort at night when he tries to settle down and go to bed. It does not wake him up. He has been doing formal physical therapy. He is here tofya after his last appointment with my PA, Maxime, to discuss whether or not he needs a manipulation under anesthesia. We did have to place a Georgette PS total knee at the time of his surgery due to his ligaments not functioning as well as they should with a prosthesis in place Current Medication - Aspirin 81 81 MG Oral Tablet Delayed Release One tablet daily 30 days, 0 refills - Celecoxib 200 MG Oral Capsule 1 capsule daily, 30 days, 1 refills - HYDROcodone-Acetaminophen 7.5-325 MG Oral Tablet 1-2 every 4-6 hours as needed, 7 days, 0 refills - Metoprolol Tartrate 50 MG Oral Tablet One tablet twice a day 90 days, 0 refills Past Medical/Surgical History Reported: Physical Trauma: Has had no fall in the last 12 months. Total Left Knee Replacement on 04/20/[address] Thuy Denson. Social History Social history unchanged. Tobacco use: Tobacco non-user. Smoking status: Never smoker. . alchol-none, tobacco - none, drugs- none. Allergies - Doxycycline Hyclate Reaction: Shortness of Breath / Dyspnea Family History Family history unchanged CAD, prostate cancer Physical Findings - Vitals taken 06/11/2023 12:57 pm Height 69 in - Vitals taken 06/11/2023 01:08 pm BP-Sitting 146/94 mmHg Pulse Rate-Sitting 86 bpm Weight 271 lbs Musculoskeletal System: Knee: General/bilateral: - Swelling of the knee. - Knees demonstrated muscle weakness. Left Knee: - Motion was abnormal. - Passive flexion - 3 degrees. Left Knee: Knee Extension: Value Passive extension 90 degrees Neurological: Motor (Strength): - Weakness of the left knee was observed strength 4/5. Gait And Stance: - Abnormal. - Limping was observed. - Limping was noted on the left. Skin: - No cellulitis. The surgical incision is well healed and well approximated. Wound healing normal. Tests Imaging: X-Ray Knee: Reviewed x-ray of knee RADIOGRAPH READING: Previous radiographs are reviewed of the left knee. These show good position and alignment of the Calera total knee prosthesis. This is a PS knee. All components remain in good position and alignment. Assessment Intact prosthesis post op. Therapy - Postoperative visit, without charge. - Continue physical therapy. 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 He will be kept off work as he states there is no light duty. I will see him back in four to six weeks after therapy and depending on how well he does, he may be able to return to work at that point. I want him to work on exercises at home as well. Practice Management Use of tobacco assessment performed Review of medications documented. Health Reminders - Assess Blood Pressure satisfied 06/11/2023. - Assess Need for CT Lung Screen satisfied 06/11/2023. - Assess Tobacco Use satisfied 06/11/2023.
--- OUTSIDE RECORDS SUMMARY | 2024-07-26 09:06 | XMS_ITS | Clinical Summary ---
Author Organization [facility] Address [address] [place] [address] Care Team Providers Care Supervisor Bonding Name Role Phone Ange Schmitt Primary Care Provider Allergies No known active allergies Medications aspirin [...] (09/11/2016): Acute maxillary sinusitis, recurrence not specified Encounters Date Type Department Care Team Description 06/28/2024 2:30 PM PVC LOADER Office Visit [facility] Clinical Manager at [address] [place] [address] Rosalind Franco NP Morbid (severe) obesity due to excess calories (HCC) (Primary Dx); Essential hypertension; ALLYSON (obstructive sleep apnea) from Last 3 Months Medical History Medical History Date Comments Hx Other Medical left knee probl ems x 4; Comments: JJC 10/25/2013 - Family History Medical History Relation Name Comments Prostate cancer Father 2 Cancer, pros lee; Cause of : Cancer, prostate Relation Name Status Comments Father 1 Father 2 Social History Tobacco Use Types Packs/Day Years Used Date Smoking Tobacco: Never Smokeless Tobacco: Never Tobacco Cessation:Counseling Given: Not Answered Alcohol Use Standard Drinks/Week Comments Not Currently 0 (1 standard drink = 0.6 oz pur e alcohol) Sex and Gender Information Value Date Recorded Sex Assigned at Not on file Legal Sex Male 1:39 PM PVC LOADER Gender Identity Not on file Sexual Orientation Not on file Obstetrics History Last Filed Vital Signs Vital Sign Reading Time Taken Comments Blood Pressure 151/91 06/28/2024 2:24 PM PVC LOADER Pulse 76 06/28/2024 2:24 PM PVC LOADER Temperature 37.1 C (98.7 F) 03/31/2022 2:23 PM CDT Respiratory Rate 18 06/28/2024 2:24 PM PVC LOADER Oxygen Saturation 95% 02/03/2022 6:36 PM CDT Inhaled Oxygen Concentration - - Weight 121.6 kg (268 lb) 06/28/2024 2:24 PM PVC LOADER Height 175.3 cm (5' 9 ) 06/28/2024 2:24 PM PVC LOADER Body Mass Index 39.58 06/28/2024 2:24 PM PVC LOADER Plan of Treatment Health Maintenance Due Date Last Done Comments Colon Cancer Screening-Colonoscopy 1970 Depression Screening 1970 Hepatitis C Screening 1970 Prostate Cancer Screening-PSA 1970 DTaP/Tdap/Td Vaccine (1 - Tdap) 1981 Hepatitis B Screening 1988 Regular Well Visit/Exam 18-64 1988 Zoster Vaccine (1 of 2) 2020 Covid-19 Vaccine (2 - 2023-2 5 season) 2024 04/11/2021 Influenza Vaccine (#1) 2024 Pneumococcal vaccine <65 Aged Out No longer eligible based on patient's age to complete this topic Insurance [facility] [employer] [facility] H[facility]/PPO Address: [address] [address] [place] [address] [facility] [facility] H[facility]/PPO Address: [address] [address] [place] [address] Care Teams Supervisor Bonding Relationship Specialty Start Date End Date Ange Schmitt PA [address] [place] [id number] PCP - General Physician Machine Sizer 04/06/23
--- OUTSIDE RECORDS SUMMARY | 2024-07-26 09:06 | XMS_ITS | Clinical Summary ---
Author Organization [facility] Address [address] [place] [address] Phone Care Team Providers Care Assistant Bookkeeper Name Role Phone SONIA ALCANTARA MD Primary Care Provider [phone] Reason for Visit and Chief Complaint REFERRAL Problems Includes: Problems addressed during this encounter and other active Problems All Visits Onset Date Resolved Date Provider Condition S tatus Presence of Artificial Knee Joint 04/21/2023 JADEN Stewart Active Last Documented On 04/21/2023 7:21AM ; [facility] Note: Left TKA on 04/20/[address] 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 DORI León MD Active Last Documented On 1 11:20AM ; [facility] Hypertension Systemic 02/01/2021 DORI HOWARD MD Active Last Documented On 1 11:21AM ; [facility] Plan of Treatment Pending Tests Order Diagnosis Results Due Ordering P rovider Therapy - Physical Therapy Knee Presence of left artificial knee joint 06/11/23 THUY DENSON DO Last Documented On 4 3:24PM ; [facility] Assessments Includes: Assessments from this encounter No Assessments Recorded Medical Equipment - Implanted Devices Includes: Current Devices No Medical Equipment Recorded Medications Includes: Medications discussed during this encounter and other current Medications Current Medications (continue as prescribed) Aspirin 81 81 MG Oral Tablet Delayed Release 3 Provider: Diagnosis: Last Documented On 03/30/2023 2:51PM By Lizzie BROWN ; [facility] Metoprolol Tartrate 50 MG Oral Tablet 01/31/2023 Pro vider: JENIFER CARDOSO ACNP Diagnosis: Last Documented On 03/30/2023 2:51PM By Lizzie BROWN ; [facility] Medications Administered Includes: Administered Medications from this [...] Active Last Documented On 08/27/2023 2:46PM ; [facility] Note: throat closing Encounters Encounter Provider Location Date Check-In Time Check-Out Time Diagnosis REFERRAL THUY DENSON DO 06/11/2023 2:01PM 11:59PM Insurance Includes: Active Insurance Policies Plan Name Member ID Group # Subscriber Relationship Effect aisha Dates 1 - [facility] [id number] HEAVEN HAIR JR Self Clinical Notes Includes: Clinical Notes from this encounter No Clinical Notes Recorded
--- OUTSIDE RECORDS SUMMARY | 2024-07-26 09:06 | XMS_ITS | Patient Health Summary ---
Author Organization [facility] Address [address] [place] [address] Care Team Providers Care Fundraising Specialist Name Role Phone Unknown, Provider Primary Care Provider Unavaila ble Note from [facility],non-owned Affiliates and Associated Physician Practices is amultiple site organization consisting of ambulatory clinics and hospital sitesin [place], [place], [place] and [place]. This disclosure is being madepursuant to the Care Everywhere program and may not contain all informatio navailable regarding this patient. Last updated 18.[facility] Allergies No known active allergies Medications * Be aware that medications may not be up to date on this document. Alwaysverify current medications with the patient. * METOPROLOL SUCCINATE ER PO Social History Tobacco Use Types Packs/Day Years Used Date Smoking Tobacco: Never Sex and Gender Information Value Date Recorded Sex Assigned at Not on file Gender Identity Not on file Sexual Orientation Not on file Last Filed Vital Signs Vital Sign Reading Time Taken Comments Blood Pressure 122/70 06/02/2016 4:17 PM MAIL CLERK Pulse 86 06/02/2016 4:17 PM MAIL CLERK Temperature 37.6 C (99.7 F) 06/02/2016 4:17 PM MAIL CLERK Respiratory Rate 18 06/02/2016 4:17 PM MAIL CLERK Oxygen Saturation 97% 06/02/2016 4:17 PM MAIL CLERK Inhaled Oxygen Concentration - - Weight 124.7 kg (275 lb) 06/02/2016 4:17 PM MAIL CLERK Height 175.3 cm (5' 9 ) 06/02/2016 4:17 PM MAIL CLERK Body Mass Index 40.61 06/02/2016 4:17 PM MAIL CLERK Procedures * STREP A SCREEN - POINT OF CARE (AMB) STL(Performed 06/02/2016) Performed for Strep throat Results * (ABNORMAL) STREP A SCREEN (06/02/2016) Strep A Rapid POCT Positive(A) Negative Strep A Internal Control Present Lot # [id number] Expiration Date Throat ENTIRE THROAT (SURFACE REGION OF NECK) / Unknown 06/02/2016 Ester Jauregui CANDY M[employer]ER-FISHERIES DIRECTOR LAB - POINT OF CARE ORDERABLES Care Teams Fundraising Specialist Relationship Specialty Start Date End Date Unknown, Provider PCP - General 06/02/16
--- OUTSIDE RECORDS SUMMARY | 2024-07-26 09:06 | XMS_ITS | Clinical Summary ---
Author Organization [facility] Address [address] [place] [address] Phone Care Team Providers Care Packaging Specialist Name Role Phone SONIA ALCANTARA MD Primary Care Provider [phone] Reason for Visit and Chief Complaint visit for: postsurgical exam left knee - The Chief Complaint is: 13 WK POST OP LTKA, PT IS CURRENTLY STILL IN THERA'Y DOING AGGRESSIVE ROM, PT STATES THIS HAS HELPED A LOT AND HE IS DOING MUCH BETTER. ONLY COMPLAINT IS STIFFNESS IN THE MORNING BUT HE IS ABLE TO WORK THROUGH IT WITH STRETCHES Problems Includes: Problems addressed during this encounter and other active Problems All Visits Onset Date Resolved Date Provider Condition S tatus Presence of Artificial Knee Joint 04/21/2023 JADEN Stewart Active Last Documented On 04/21/2023 7:21AM ; [facility] Note: Left TKA on 04/20/[address] Denson Osteoarthritis Localized Primary Knee Left 09/17/2022 JADEN Stewart Active Last Documented On 3 4:10PM ; 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 Hypertension Systemic 02/01/2021 DORI HOWARD MD Active Last Documented On 1 11:21AM ; [facility] Plan of Treatment - Home exercises - Last Documented On 07/20/2023 11:07AM ; [facility] - Follow-up for re-examination twelve months - Last Documented On 07/20/2023 11:07AM ; [facility] - Work restrictions - Last Documented On 07/20/2023 11:07AM ; [facility] - Fit for work - Last Documented On 07/20/2023 11:07AM ; [facility] I discussed with Heaven that he he [...] back in six weeks to check his progress. - Last Documented On 07/20/2023 11:07AM ; [facility] Instructions to patient No reduced physical activity -release to full activities Last Documented On 4 11:04AM ; [facility] No reduced physical activity -release to full activities Last Documented On 4 11:04AM ; [facility] Watch for signs/symptoms of infection Last Documented On 4 11:04AM ; [facility] Education and Decision Aids were provided during visit for: Patient education about orth opedic activities Last Documented On 4 11:04AM ; [facility] Post-op teaching Last Documented On 4 11:04AM ; [facility] Assessments Includes: Assessments from this encounter Findings - Activities of daily living - Last Documented On 07/20/2023 11:07AM ; [facility] Intact prosthesis post op. - Last Documented On 07/20/2023 11:07AM ; [facility] Instructions Includes: Instructions from this encounter Instructions to patient No reduced physical activity -release to full activities Last Documented On 4 11:04AM ; [facility] No reduced physical activity -release to full activities Last Documented On 4 11:04AM ; [facility] Watch for signs/symptoms of infection Last Documented On 4 11:04AM ; [facility] Education and Decision Aids were provided during visit for: Patient education about orth opedic activities Last Documented On 4 11:04AM ; [facility] Post-op teaching Last Documented On 4 11:04AM ; [facility] Medical Equipment - Implanted Devices Includes: Current Devices No Medical Equipment Recorded Medications Includes: Medications discussed during this encounter and other current Medications Discontinued / Stopped on this date JADEN Stewart on 05/04/2023 HYDROcodone-Acetaminophen 7. 5-325 MG Oral Tablet Provider: JADEN Stewart Diagnosis: Presence of left artificial knee joint Last Documented On 07/20/2023 9:56AM By VALERIA ESPOSITO LPN ; [facility] Celecoxib 200 MG Oral Capsule Provider: JADEN Stewart Diagnosis: Presence of left artificial knee joint Last Documented On 07/20/2023 9:56AM By VALERIA ESPOSITO LPN ; [facility] Current Medications (continue as prescribed) Aspirin 81 81 MG Oral Tablet Delayed Release 3 Provider: Diagnosis: Last Documented On 03/30/2023 2:51PM By Lizzie BROWN ; [facility] Metoprolol Tartrate 50 MG Oral Tablet 01/31/2023 Pro vider: JENIFER S DATHU ACNP Diagnosis: Last Documented On 03/30/2023 2:51PM By Lizzie BROWN ; [facility] Past Medications on file Lovenox 30 MG/0.3ML Injection Solution Prefilled Syringe 04/21/2023 - 05/05/2023 Provider: JADEN Stewart Diagnosis: Presence of left artificial knee joint as directed one injection tw ice a day for 2 weeks after surgery Last Documented On 3 7:36AM By Jaden Manrique PA-C ; [facility] Medications Administered Includes: Administered Medications from this encounter No Administered Medications Recorded Vital Signs Includes: Vital Signs from this encounter Vital Name 07/20/2023 10:14A 07/20/2023 09: 55A Blood Pressure Sitting (mmHg) 122/80 151/89 Pulse Rate-Sitting (bpm) 70 Height (in) 69 Weight (lb) 271 Body Mass Index 40 Body Surface Area 2.4 Last Documented: On 07/20/2023 10:13A M ; [facility] On 07/20/2023 9:56AM ; [facility] Results Includes: Results discussed during this encounter No Results Recorded For Specified Dates History of Present Illness Includes: History of Present Illness from this encounter HPI HEAVEN HAIR is a 53 year old male. - Allergy list reviewed - Medication list reviewed - General overall feeling - No fever - No chills - No knee joint pain - No knee joint swelling - No knee joint stiffness - No sensory disturbances - No sleep disturbances Heaven is here today for a final recheck following his left total knee arthroplasty on 04/20/2023. He feels he has finally turned the corner with therapy and is doing great. He is not having to take anything for pain. He is sleeping without problems. He is now able to do his activities of daily living wtihout problems. He is ready to return to work at this point in time Social History Description Last Updated Social history unchanged 11/06/2022 Last Documented On 4 9:54AM ; [facility] Tobacco non-user 01/09/2022 Last Documented On 4 9:54AM ; [facility] . alchol-none, tobacco - none, dr stinson- none 09/21/2019 Last Documented On 4 9:54AM ; [facility] Smoking status : Never smoker 08/23/2019 Last Documented On 4 9:54AM ; [facility] Procedures and Surgical History Includes: Procedures from this encounter Procedures Code Diagnosis Performing Provider Service L ocation Service Date watch for signs/symptoms of infection Last Documented On 4 11:04AM ; [facility] use of tobacco assessment performed 1000F Last Documented On 4 9:56AM ; [facility] review of medications documented 1160F Last Documented On 4 9:56AM ; [facility] Medical History Includes: Medical History addressed during this encounter Description Last Updated Total Left Knee Replacement on 04/20/[address] Alvaro Denson 04/21/2023 Last Documented On 4 9:54AM ; [facility] Has had no fall in the last 12 months. 0 01/09/2022 Last Documented On 4 9:54AM ; [facility] Family History Includes: Family History addressed during this encounter Description Last Updated Family history unchanged 11/06/2022 Last Documented On 4 9:54AM ; [facility] CAD, prostate cancer 09/21/2019 Last Documented On 4 9:54AM ; [facility] Review of Systems Includes: Review of Systems [...] Active Last Documented On 08/27/2023 2:46PM ; [facility] Note: throat closing Encounters Encounter Provider Location Date Check-In Time Check- Out Time Diagnosis FOLLOW UP ALVARO DENSON DO [facility] 4 9:48AM 11:07AM Assessment of Activities of Daily Living,Assessm ent [use For S.o.a.p. 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 Denson Chief Complaint The Chief Complaint is: 13 WK POST OP LTKA, PT IS CURRENTLY STILL IN THERA'Y DOING AGGRESSIVE ROM, PT STATES THIS HAS HELPED A LOT AND HE IS DOING MUCH BETTER. ONLY COMPLAINT IS STIFFNESS IN THE MORNING BUT HE IS ABLE TO WORK THROUGH IT WITH STRETCHES. Reason For Visit Visit for: postsurgical exam left knee. History of Present Illness HEAVEN HAIR is a 53 year old male. - Allergy list reviewed - Medication list reviewed - General overall feeling - No fever - No chills - No knee joint pain - No knee joint swelling - No knee joint stiffness - No sensory disturbances - No sleep disturbances Augan is here today for a final recheck following his left total knee arthroplasty on 04/20/2023. He feels he has finally turned the corner with therapy and is doing great. He is not having to take anything for pain. He is sleeping without problems. He is now able to do his activities of daily living wtihout problems. He is ready to return to work at this point in time Current Medication - Aspirin 81 81 MG Oral Tablet Delayed Release One tablet daily 30 days, 0 refills - Metoprolol Tartrate 50 MG Oral Tablet One tablet twice a day 90 days, 0 refills Past Medical/Surgical History Reported: Physical Trauma: Has had no fall in the last 12 months. Total Left Knee Replacement on 04/20/[address] Alvaro Denson. Social History Social history unchanged. Tobacco use: Tobacco non-user. Smoking status: Never smoker. . alchol-none, tobacco - none, drugs- none. Allergies - Doxycycline Hyclate Reaction: Shortness of Breath / Dyspnea Family History Family history unchanged CAD, prostate cancer Physical Findings - Vitals taken 07/20/2023 09:55 am BP-Sitting 151/89 mmHg Pulse Rate-Sitting 70 bpm Height 69 in Weight 271 lbs Body Mass Index 40 kg/m2 Body Surface Area 2.4 m2 - Vitals taken 07/20/2023 10:14 am BP-Sitting 122/80 mmHg Musculoskeletal System: Knee: General/bilateral: - Warmth of the knee normal post op total joint warmth. - No swelling of the knee. - No pain was elicited by motion of the knee. - No instability of the knees. Left Knee: - Motion was abnormal. Left Knee: Knee Motion: Value Passive flexion 0.95 degrees Passive extension 0 degrees Neurological: Motor (Strength): - Weakness of the left knee was observed Left knee has 4/5 strength. - Strength was normal. Balance: - Normal. Gait And Stance: - Normal. Wound healing normal.Surgical incision is well healed and well approximated. Assessment - Activities of daily living Intact prosthesis post op. Therapy - Postoperative visit, without charge. - Watch for signs/symptoms of infection. Counseling/Education - No reduced physical activity -release to full activities - No reduced physical activity -release to full activities - Patient education about orthopedic activities - Post-op teaching Plan - Home exercises - Follow-up for re-examination twelve months - Work restrictions - Fit for work I discussed with Heaven that he he [...] back in six weeks to check his progress. Practice Management Use of tobacco assessment performed Review of medications documented. Health Reminders - Assess Blood Pressure satisfied 07/20/2023. - Assess BMI satisfied 07/20/2023. - Assess Need for CT Lung Screen satisfied 07/20/2023. - Assess Tobacco Use satisfied 07/20/2023.
--- OUTSIDE RECORDS SUMMARY | 2024-07-26 09:06 | XMS_ITS ---
Care Plan - [facility] Created on: July 26, 2024 HEAVEN HAIR JR : 1970 Sex: Male Author Organization [facility] Address [address] [place] [address] Phone Care Team Providers Care Gymnastic Coach Name Role Phone MARICRUZ PARIS, SONIA Perez Primary Care Provider [phone]
--- OUTSIDE RECORDS SUMMARY | 2024-07-26 09:06 | XMS_ITS | Referral Summary ---
Author Organization [facility] Address [address] [place] [address] Care Team Providers Care Hospital Fellow Name Role Phone Unknown, Provider Primary Care Provider Unavaila ble Source Comments [facility],non-owned Affiliates and Associated Physician Practices is amultiple site organization consisting of ambulatory clinics and hospital sitesin [place], [place], [place] and [place]. This disclosure is being madepursuant to the Care Everywhere program and may not contain all information available regarding this patient. Last updated 18.Rally Fit Allergies No known active allergies Medications * [...] Comments Blood Pressure 122/70 06/02/2016 4:17 PM LITHOGRAPHIC PROOFER Pulse 86 06/02/2016 4:17 PM LITHOGRAPHIC PROOFER Temperature 37.6 C (99.7 F) 06/02/2016 4:17 PM LITHOGRAPHIC PROOFER Respiratory Rate 18 06/02/2016 4:17 PM LITHOGRAPHIC PROOFER Oxygen Saturation 97% 06/02/2016 4:17 PM LITHOGRAPHIC PROOFER Inhaled Oxygen Concentration - - Weight 124.7 kg (275 lb) 06/02/2016 4:17 PM LITHOGRAPHIC PROOFER Height 175.3 cm (5' 9 ) 06/02/2016 4:17 PM LITHOGRAPHIC PROOFER Body Mass Index 40.61 06/02/2016 4:17 PM LITHOGRAPHIC PROOFER Plan of Treatment Not on file Care Teams Hospital Fellow Relationship Specialty Start Date End Date Unknown, Provider PCP - General 06/02/16
--- NOTE | 2024-07-26 09:11 | ECG_ITS ---
Test Date: 2024-07-26 09:12:31 Measurements Intervals Noble Rate: 75 P: 8 IA: 145 QRS: 60 QRSD: 99 T: 52 QT: 347 QTc: 387 Interpretive Statements SINUS RHYTHM BASELINE ARTIFACT- I, II, AVR, AVL, V1 NORMAL ECG No previous ECG available for comparison Electronically Signed On 07-26-2024 09:59:55 DATABASE DBA by Juan Pablo Worley D.O.
[2024-07-26 09:13] VITALS: BP 137/89; PULSE 78; RESP 17; TEMP 36.6; O2SAT 96
--- NOTE | 2024-07-26 09:15 | ED_ITS ---
HPI - Chest Pain General Chief Complaint: Chest Pain Stated Complaint: chest pain Time Seen by Provider: 07/26/24 09:13 Source: patient Mode of arrival: ambulatory Limitations: no limitations History of Present Illness HPI narrative: This is a 54-year-old male that presents to the emergency department for left- sided chest pain. Reports the pain is dull/achy in nature. Intermittent. Patient had just when outside in the cold air. Came back inside and started to feel the discomfort. No known alleviating or exacerbating factors. He does not report any current pain. Reports he is currently battling a sinus infection . Reports he has had some cough and congestion. Denies fevers. Related Data Allergies Allergy/AdvReac Type Severity Reaction Status Date / Time No Known Allergies Allergy Mild Verified 07/26/24 09:17 Review of Systems 2 Review of Systems: CONSTITUTIONAL: Denies fever ENT: Reports rhinorrhea, congestion CARDIOVASCULAR: Reports chest pain. Denies palpitations, or edema. RESPIRATORY: Reports cough and dyspnea. All systems reviewed & are unremarkable except as noted in HPI and below PMFSH Past Medical History Medical History (Updated 07/26/24 @ 12:51 by Perla Cage PA-C) History of cardiomyopathy Social History Social History (Updated 07/26/24 @ 10:03 by Perla Cage PA-C) Smoking status: Never smoker Exam 2 Narrative: GENERAL: Well-appearing, well-nourished, and in no acute distress. HEAD: Normocephalic, atraumatic. EYES: EOMI. ENT: Nares clear, no rhinorrhea or epistaxis. Mucous membranes moist. Oropharynx without tonsillar hypertrophy exudate or other lesions. Bilateral cerumen impaction NECK: Supple. No adenopathy or masses. CHEST: Clear to auscultation. No respiratory distress. No wheezes rales or rhonchi HEART: Regular rate and rhythm. No murmur heard. Normal peripheral pulses. EXTREMITIES: Normal range of motion. No edema. SKIN: Warm, dry, no rash. NEURO: No focal deficits. Alert and oriented x3. PSYCH: Normal mood and affect Course Course Emergency Course: Patient updated on his workup and agrees with plan of care Vital Signs Vital signs: Vital Signs Temperature 97.8 F 07/26/24 09:13 Pulse Rate 78 07/26/24 09:13 Respiratory Rate 17 07/26/24 09:13 Blood Pressure 137/89 07/26/24 09:13 Pulse Oximetry 96 07/26/24 09:13 Oxygen Delivery Room Air 07/26/24 09:13 Temperature 97.8 F 07/26/24 09:13 Pulse Rate 75 07/26/24 09:19 Respiratory Rate 17 07/26/24 09:13 Blood Pressure 137/89 07/26/24 09:13 Pulse Oximetry 98 07/26/24 09:18 Oxygen Delivery Room Air 07/26/24 09:18 MDM - Chest Pain MDM Narrative Medical decision making narrative: Patient presents the emergency department for intermittent chest pain this morning. His vitals are stable. Patient resting comfortably. CBC and metabolic panel without concerning findings. EKG without concerning changes and his baseline and 3 hour troponin are negative. D-dimer elevated, CTA of the chest obtained. No PE or acute cardiopulmonary abnormality. His heart score is a 2. He was updated on his workup. Instructed to have further follow-up with his commodity management specialist. He was given warnings to return to the ER Differential Diagnosis Differential diagnosis: Likely stable angina, costochondritis and other (Pleurisy, pneumonia, PE) Lab Data Attestation: I reviewed the patient's lab results. 07/26/24 09:15 07/26/24 09:15 Labs: Lab Results 07/26/24 07/26/24 07/26/24 Range/Units 09:15 10:04 12:04 WBC 8.2 (4.5-10.0) K/mm3 RBC 5.12 (4.6-6.20) M/mm3 Hgb 15.2 (14.0-18.0) g/dL Hct 44.5 (42.0-52.0) % MCV 86.9 (80-100) fl MCH 29.7 (26-34) pg MCHC 34.2 (32-36) g/dl RDW 12.7 (11.5-14.5) % Plt Count 184 (150-375) k/mm3 MPV 9.7 (7.4-10.4) fl Immature Gran % (Auto) 0.2 (0-0.5) % Neut % (Auto) 69.8 (45.5-73.1) % Lymph % (Auto) 20.9 (18.3-44.2) % [place] % (Auto) 6.7 (2.6-8.5) % Eos % (Auto) 1.7 (0-4.4) % Baso % (Auto) 0.7 (0.2-1.2) % Lymph # (Auto) 1.72 (0.9-3.2) K/mm3 [place] # (Auto) 0.6 (0.1-0.6) K/mm3 Eos # (Auto) 0.1 (0-0.3) K/mm3 Baso # (Auto) 0.1 (0.0-0.1) K/mm3 Abs Immat Gran (auto) 0.02 (0.00-0.031) K/mm3 Absolute Neuts (auto) 5.8 (1.3-6.7) K/mm3 Absolute Nucleated RBC 0.000 (0.0-0.012) K/mm3 Nucleated RBC % 0.0 (0.0-0.2) % PT 13.0 (11.1-14.7) Seconds INR 1.0 APTT 31.0 (22.3-36.8) Seconds D-Dimer 2.26 H (<0.48) ug/mL Sodium 138 (137-145) mmol/L Potassium 4.5 (3.4-5.0) mmol/L Chloride 103 (98-107) mmol/L Carbon Dioxide 24 (22-30) mmol/L Anion Gap 11 (4-12) mmol/L BUN 24 H (9-20) mg/dL Creatinine 1.07 (0.7-1.3) mg/dL Estim Creat Clear Calc 91 ml/min Estimated GFR > 60 (59 - ) Glucose 86 (65-110) mg/dL Calcium 9.3 (8.4-10.2) mg/dL Total Bilirubin 1.1 (0.2-1.3) mg/dL AST 24 (17-59) U/L ALT 15 (6-50) U/L Alkaline Phosphatase 77 (38-126) U/L Troponin I < 0.012 < 0.012 (0.000-0.034) ng/mL Total Protein 8.0 (6.3-8.2) g/dL Albumin 4.3 (3.5-5.1) g/dL Lipase 80 (23-300) U/L Influenza A (RT-PCR) Negative (Negative) Influenza B (RT-PCR) Negative (Negative) RSV (RT-PCR) Negative (Negative) SARS-CoV-2 RNA (RT-PCR) Negative (Negative) Imaging Data Radiologist's impression: ITS Impressions Chest X-Ray 07/26/24 09:32 IMPRESSION: 1. Mild atelectasis in left lower lung zone. Chest CTA 07/26/24 11:27 IMPRESSION: 1. No pulmonary embolus. ECG Data EKG #1: ECG completion date: 07/26/24 EKG Interpretation: normal rate, sinus rhythm, no ST changes and normal QT Critical Care Time Critical Care Time Critical Care Time: No Discharge Plan Discharge Clinical Impression: Chest pain Qualifiers: Chest pain type: unspecified Qualified Code(s): R07.9 - Chest pain, unspecified Patient Disposition: Home, Self-Care Condition: Stable Instructions: Chest Pain (ED) Additional Instructions: Return to the emergency department if you experience fever, worsening chest pain, shortness of breath, or any other symptoms that are concerning to you. Follow up with your commodity management specialist Patient Language: Danish Follow-up/Referrals: Siri,William Hawkins MD [Primary Care Provider] - Quality HEART score for chest pain patients History: slightly suspicious ECG: normal Age: > 45 and < 65 years Risk factors: 1 or 2 risk factors Troponin: < or = to 1x normal limit Heart score: 2
[2024-07-26 09:18] VITALS: O2SAT 98
[2024-07-26 09:19] VITALS: PULSE 75
[2024-07-26 09:20] LABS: Basophils Absolute Auto 0.1 K/mm3 (0.0-0.1); Basophils Percent Auto 0.7 % (0.2-1.2); Eosinophils Absolute Auto 0.1 K/mm3 (0-0.3); Eosinophils Percent Auto 1.7 % (0-4.4); Hematocrit 44.5 % (42.0-52.0); Hemoglobin 15.2 g/dL (14.0-18.0); Immature Granulocyte Absolute 0.02 K/mm3 (0.00-0.031); Immature Granulocyte Percent A 0.2 % (0-0.5); Lymphocytes Absolute Auto 1.72 K/mm3 (0.9-3.2); Lymphocytes Percent Auto 20.9 % (18.3-44.2); Mean Corpuscular HGB Conc 34.2 g/dl (32-36); Mean Corpuscular Hemoglobin 29.7 pg (26-34); Mean Corpuscular Volume 86.9 fl (80-100); Mean Platelet Volume 9.7 fl (7.4-10.4); Monocytes Absolute Auto 0.6 K/mm3 (0.1-0.6); Monocytes Percent Auto 6.7 % (2.6-8.5); Neutrophils Absolute Auto 5.8 K/mm3 (1.3-6.7); Neutrophils Percent Auto 69.8 % (45.5-73.1); Platelet Count Result 184 k/mm3 (150-375); Red Blood Count 5.12 M/mm3 (4.6-6.20); Red Cell Distribution Width 12.7 % (11.5-14.5); White Blood Count 8.2 K/mm3 (4.5-10.0)
[2024-07-26] MEDS: ASPIRIN 81 MG CHEWABLE TABLET 324 MG PO (09:22)
[2024-07-26 09:31] LABS: Alanine Aminotransferase 15 U/L (6-50); Albumin Level 4.3 g/dL (3.5-5.1); Alkaline Phosphatase 77 U/L (38-126); Anion Gap 11 mmol/L (4-12); Aspartate Amino Transferase 24 U/L (17-59); Bilirubin,Total 1.1 mg/dL (0.2-1.3); Blood Urea Nitrogen 24 mg/dL (9-20); Calcium 9.3 mg/dL (8.4-10.2); Carbon Dioxide 24 mmol/L (22-30); Chloride 103 mmol/L (98-107); Estimated CRCL calculation 91 ml/min; Estimated Glomerular Filt Rate > 60; Glucose 86 mg/dL (65-110); Lipase 80 U/L (23-300); Potassium 4.5 mmol/L (3.4-5.0); Sodium 138 mmol/L (137-145)
[2024-07-26 09:40] LABS: Troponin I < 0.012 ng/mL (0.000-0.034)
--- OUTSIDE RECORDS SUMMARY | 2024-07-26 09:48 | XMS_ITS | Clinical Summary ---
Author Organization [facility] Address [address] [place] [address] Care Team Providers Care Airline Operations Agent Name Role Phone Unknown, Provider Primary Care Provider Unavaila ble Source Comments [facility],non-owned Affiliates and Associated Physician Practices is amultiple site organization consisting of ambulatory clinics and hospital sitesin [place], [place] and [place]. This disclosure is being madepursuant to the Care Everywhere program and may not contain all information available regarding this patient. Last updated 18.Scali Allergies No known active allergies Medications * [...] Comments Blood Pressure 122/70 06/02/2016 4:17 PM DERRICK BUILDER Pulse 86 06/02/2016 4:17 PM DERRICK BUILDER Temperature 37.6 C (99.7 F) 06/02/2016 4:17 PM DERRICK BUILDER Respiratory Rate 18 06/02/2016 4:17 PM DERRICK BUILDER Oxygen Saturation 97% 06/02/2016 4:17 PM DERRICK BUILDER Inhaled Oxygen Concentration - - Weight 124.7 kg (275 lb) 06/02/2016 4:17 PM DERRICK BUILDER Height 175.3 cm (5' 9 ) 06/02/2016 4:17 PM DERRICK BUILDER Body Mass Index 40.61 06/02/2016 4:17 PM DERRICK BUILDER Plan of Treatment Health Maintenance Due Date [...] age to complete this topic Care Teams Airline Operations Agent Relationship Specialty Start Date End Date Unknown, Provider PCP - General 06/02/16
--- OUTSIDE RECORDS SUMMARY | 2024-07-26 09:48 | XMS_ITS | Clinical Summary ---
Author Organization [facility] Address [address] [place] [address] Phone Care Team Providers Care Social Media Campaign Manager Name Role Phone Provider, None Primary Care [...] Comments Blood Pressure 124/76 07/24/2017 10:22 AM PROCEDURES TECH Pulse 95 07/24/2017 10:22 AM PROCEDURES TECH Temperature 36.7 C (98 F) 07/24/2017 10:22 AM PROCEDURES TECH Respiratory Rate 16 07/24/2017 10:22 AM PROCEDURES TECH Oxygen Saturation 96% 07/24/2017 10:22 AM PROCEDURES TECH Inhaled Oxygen Concentration - - Weight 130.2 kg (287 lb) 07/24/2017 10:22 AM PROCEDURES TECH Height 175.3 cm (5' 9 ) 07/24/2017 10:22 AM PROCEDURES TECH Body Mass Index 42.38 07/24/2017 10:22 AM PROCEDURES TECH Plan of Treatment Health Maintenance Due Date [...] age to complete this topic Care Teams Social Media Campaign Manager Relationship Specialty Start Date End Date Provider, None [place] PCP - General 07/24/17
--- OUTSIDE RECORDS SUMMARY | 2024-07-26 09:48 | XMS_ITS | Referral Summary ---
Author Organization [facility] Address [address] [place] [address] Care Team Providers Care Collections Officer Name Role Phone Unknown, Provider Primary Care Provider Unavaila ble Source Comments [facility],non-owned Affiliates and Associated Physician Practices is amultiple site organization consisting of ambulatory clinics and hospital sitesin [place], [place], [place] and [place]. This disclosure is being madepursuant to the Care Everywhere program and may not contain all information available regarding this patient. Last updated 18.[facility] Allergies No known active allergies Medications * [...] Comments Blood Pressure 122/70 06/02/2016 4:17 PM ADDING MACHINE MECHANIC Pulse 86 06/02/2016 4:17 PM ADDING MACHINE MECHANIC Temperature 37.6 C (99.7 F) 06/02/2016 4:17 PM ADDING MACHINE MECHANIC Respiratory Rate 18 06/02/2016 4:17 PM ADDING MACHINE MECHANIC Oxygen Saturation 97% 06/02/2016 4:17 PM ADDING MACHINE MECHANIC Inhaled Oxygen Concentration - - Weight 124.7 kg (275 lb) 06/02/2016 4:17 PM ADDING MACHINE MECHANIC Height 175.3 cm (5' 9 ) 06/02/2016 4:17 PM ADDING MACHINE MECHANIC Body Mass Index 40.61 06/02/2016 4:17 PM ADDING MACHINE MECHANIC Plan of Treatment Not on file Care Teams Collections Officer Relationship Specialty Start Date End Date Unknown, Provider PCP - General 06/02/16
--- OUTSIDE RECORDS SUMMARY | 2024-07-26 09:48 | XMS_ITS | Clinical Summary ---
Author Organization [facility] Address [address] [place] [address] Phone Care Team Providers Care Corrections Unit Supervisor Name Role Phone SONIA ALCANTARA MD Primary Care Provider [phone] Reason for Visit and Chief Complaint visit [...] Active Last Documented On 04/21/2023 7:21AM ; [facility] Note: Left TKA on 04/20/[address] 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 DORI León MD Active Last Documented On 1 11:20AM ; [facility] Hypertension Systemic 02/01/2021 DORI HOWARD MD Active Last Documented On 1 11:21AM ; [facility] Plan of Treatment - Home exercises - Last Documented On 07/20/2023 11:07AM ; [facility] - Follow-up for re-examination twelve months - Last Documented On 07/20/2023 11:07AM ; [facility] - Work restrictions - Last Documented On 07/20/2023 11:07AM ; [facility] - Fit for work - Last Documented On 07/20/2023 11:07AM ; [facility] I discussed with Heaven that [...] - Last Documented On 07/20/2023 11:07AM ; [facility] Instructions to patient No reduced physical activity -release to full activities Last Documented On 4 11:04AM ; [facility] No reduced physical activity -release to full activities Last Documented On 4 11:04AM ; [facility] Watch for signs/symptoms of infection Last Documented On 4 11:04AM ; [facility] Education and Decision Aids were provided during visit for: Patient education about orth opedic activities Last Documented On 4 11:04AM ; [facility] Post-op teaching Last Documented On 4 11:04AM ; [facility] Assessments Includes: Assessments from this encounter Findings - Activities of daily living - Last Documented On 07/20/2023 11:07AM ; [facility] Intact prosthesis post op. - Last Documented On 07/20/2023 11:07AM ; [facility] Instructions Includes: Instructions from this encounter Instructions to patient No reduced physical activity -release to full activities Last Documented On 4 11:04AM ; [facility] No reduced physical activity -release to full activities Last Documented On 4 11:04AM ; [facility] Watch for signs/symptoms of infection Last Documented On 4 11:04AM ; [facility] Education and Decision Aids were provided during visit for: Patient education about orth opedic activities Last Documented On 4 11:04AM ; [facility] Post-op teaching Last Documented On 4 11:04AM ; [facility] Medical Equipment - Implanted Devices Includes: Current Devices No Medical Equipment Recorded Medications Includes: Medications discussed during this encounter and other current Medications Discontinued / Stopped on this date JADEN Stewart on 05/04/2023 HYDROcodone-Acetaminophen 7. 5-325 MG Oral Tablet Provider: JADEN Stewart Diagnosis: Presence of left artificial knee joint Last Documented On 07/20/2023 9:56AM By VALERIA ESPOSITO LPN ; [facility] Celecoxib 200 MG Oral Capsule Provider: JADEN Stewart Diagnosis: Presence of left artificial knee joint Last Documented On 07/20/2023 9:56AM By VALERIA ESPOSITO LPN ; [facility] Current Medications (continue as prescribed) Aspirin 81 81 MG Oral Tablet Delayed Release 3 Provider: Diagnosis: Last Documented On 03/30/2023 2:51PM By Lizzie BROWN ; [facility] Metoprolol Tartrate 50 MG Oral Tablet 01/31/2023 Pro vider: JENIFER S DATHU ACNP Diagnosis: Last Documented On 03/30/2023 2:51PM By Lizzie BROWN ; [facility] Past Medications on file Lovenox 30 MG/0.3ML Injection Solution Prefilled Syringe 04/21/2023 - 05/05/2023 Provider: JADEN Stewart Diagnosis: Presence of left artificial knee joint as directed one injection tw ice a day for 2 weeks after surgery Last Documented On 3 7:36AM By Jaden Manrique PA-C ; [facility] Medications Administered Includes: Administered Medications from this encounter No Administered Medications Recorded Vital Signs Includes: Vital Signs from this encounter Vital Name 07/20/2023 10:14A 07/20/2023 09: 55A Blood Pressure Sitting (mmHg) 122/80 151/89 Pulse Rate-Sitting (bpm) 70 Height (in) 69 Weight (lb) 271 Body Mass Index 40 Body Surface Area 2.4 Last Documented: On 07/20/2023 10:13A M ; [facility] On 07/20/2023 9:56AM ; [facility] Results Includes: Results discussed during [...] 11/06/2022 Last Documented On 4 9:54AM ; [facility] Tobacco non-user 01/09/2022 Last Documented On 4 9:54AM ; [facility] . alchol-none, tobacco - none, dr stinson- none 09/21/2019 Last Documented On 4 9:54AM ; [facility] Smoking status : Never smoker 08/23/2019 Last Documented On 4 9:54AM ; [facility] Procedures and Surgical History Includes: Procedures from this encounter Procedures Code Diagnosis Performing Provider Service L ocation Service Date watch for signs/symptoms of infection Last Documented On 4 11:04AM ; [facility] use of tobacco assessment performed 1000F Last Documented On 4 9:56AM ; [facility] review of medications documented 1160F Last Documented On 4 9:56AM ; [facility] Medical History Includes: Medical History addressed during this encounter Description Last Updated Total Left Knee Replacement on 04/20/[address] Alvaro Denson 04/21/2023 Last Documented On 4 9:54AM ; [facility] Has had no fall in the last 12 months. 0 01/09/2022 Last Documented On 4 9:54AM ; [facility] Family History Includes: Family History addressed during this encounter Description Last Updated Family history unchanged 11/06/2022 Last Documented On 4 9:54AM ; [facility] CAD, prostate cancer 09/21/2019 Last Documented On 4 9:54AM ; [facility] Review of Systems Includes: Review of [...] Active Last Documented On 08/27/2023 2:46PM ; [facility] Note: throat closing Encounters Encounter Provider Location Date Check-In Time Check- Out Time Diagnosis FOLLOW UP ALVARO DENSON DO [facility] 4 9:48AM 11:07AM Assessment of Activities of Daily Living,Assessm ent [use For S.o.a.p. Note Free Text] Insurance Includes: Active Insurance Policies Plan Name Member ID Group # Subscriber Relationship Effect aisha Dates 1 - [facility] [id number] [employer] [facility] Clinical Notes Includes: Clinical Notes from this encounter * Progress note Date Encounter Last Documented by 07/20/2023 FOLLOW UP Last documented on 07/20/2023; 11:07 AM, Tarah BROWN; [facility] Active Problems & Conditions - [...]
--- OUTSIDE RECORDS SUMMARY | 2024-07-26 09:48 | XMS_ITS | Clinical Summary ---
Author Organization [facility] Address [address] [place] [address] Phone Care Team Providers Care Associate Professor Of Musicology Name Role Phone SONIA ALCANTARA MD Primary Care Provider [phone] Reason for Visit and Chief Complaint REFERRAL Problems Includes: Problems addressed during this encounter and other active Problems All Visits Onset Date Resolved Date Provider Condition S tatus Presence of Artificial Knee Joint 04/21/2023 JADEN Stewart Active Last Documented On 04/21/2023 7:21AM ; [facility] Note: Left TKA on 04/20/[address] 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 DORI León MD Active Last Documented On 1 11:20AM ; [facility] Hypertension Systemic 02/01/2021 DORI HOWARD MD Active Last Documented On 1 11:21AM ; [facility] Plan of Treatment Pending Tests Order Diagnosis Results Due Ordering P rovider Therapy - Physical Therapy Knee Presence of left artificial knee joint 06/11/23 THUY DENSON DO Last Documented On 4 3:24PM ; [facility] Assessments Includes: Assessments from this encounter No Assessments Recorded Medical Equipment - Implanted Devices Includes: Current Devices No Medical Equipment Recorded Medications Includes: Medications discussed during this encounter and other current Medications Current Medications (continue as prescribed) Aspirin 81 81 MG Oral Tablet Delayed Release 3 Provider: Diagnosis: Last Documented On 03/30/2023 2:51PM By Lizzie BROWN ; [facility] Metoprolol Tartrate 50 MG Oral Tablet 01/31/2023 Pro vider: JENIFER CARDOSO ACNP Diagnosis: Last Documented On 03/30/2023 2:51PM By Lizzie BROWN ; [facility] Medications Administered Includes: Administered Medications [...] Active Last Documented On 08/27/2023 2:46PM ; [facility] Note: throat closing Encounters Encounter Provider Location Date Check-In Time Check-Out Time Diagnosis REFERRAL THUY DENSON DO 06/11/2023 2:01PM 11:59PM Insurance Includes: Active Insurance Policies Plan Name Member ID Group # Subscriber Relationship Effect aisha Dates 1 - [facility] [id number] [employer] JR Self Clinical Notes Includes: Clinical Notes from this encounter No Clinical Notes Recorded
--- OUTSIDE RECORDS SUMMARY | 2024-07-26 09:48 | XMS_ITS | Referral Summary ---
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 at [address] [place] [address] Rosalind Franco NP Morbid (severe) [...] on file Legal Sex Male 1:39 PM POLICE CHIEF DEPUTY Gender Identity Not on file Sexual Orientation Not on file Last Filed Vital Signs Vital Sign Reading Time Taken Comments Blood Pressure 151/91 06/28/2024 2:24 PM POLICE CHIEF DEPUTY Pulse 76 06/28/2024 2:24 PM POLICE CHIEF DEPUTY Temperature 37.1 C (98.7 F) 03/31/2022 2:23 PM CDT Respiratory Rate 18 06/28/2024 2:24 PM POLICE CHIEF DEPUTY Oxygen Saturation 95% 02/03/2022 6:36 PM CDT Inhaled Oxygen Concentration - - Weight 121.6 kg (268 lb) 06/28/2024 2:24 PM POLICE CHIEF DEPUTY Height 175.3 cm (5' 9 ) 06/28/2024 2:24 PM POLICE CHIEF DEPUTY Body Mass Index 39.58 06/28/2024 2:24 PM POLICE CHIEF DEPUTY Plan of Treatment Not on file Insurance [facility] CHOICE PLUS [id number] CHOICE PLUS Care Teams Surplus Property Disposal Agent Relationship Specialty Start Date End Date Ange Schmitt PA [address] [place] [id number] PCP - General Physician Patrol Supervisor 04/06/23
--- OUTSIDE RECORDS SUMMARY | 2024-07-26 09:48 | XMS_ITS | Continuity of Care Document ---
Author Organization [facility] Address [address] [place] [address] Phone Care Team Providers Care Beekeeper Name Role Phone Paulo Rm MD Unavailable [...] Lens Limbal Relaxing Incision IOLMaster Office/outpatient Visit, [facility] Echo Exam Of Eye Advance Directives Directive [...] Diagnoses Date Provider Providers Copied on Encounter [facility], [address], [place], [place], [id number], [place] tel:[phone] SEC [place] Professional blurry vision (chief complaint) No Information Apr-1 0-201 3 Jag Bates. [address], [address], [place], [place], [id number], [place]. tel:[phone] [place] [facility], [address], [place], [place], [id number], [place] tel:[phone] SEC [place] Professional No Information Apr-0 1-201 3 Jag Bates. [address] [facility], [address], [place], [place], [id number], [place]. tel:[phone] [facility], [address], [place], [place], [id number], [place] tel:[phone] SEC [place] Professional No Information Apr-0 8-201 0 Sarahy Angy. [address], [address], [address], [place]. tel:[phone] [facility], [address], [place], [place], [id number], [place] tel:[phone] SEC [place] Professional No Information Mar-1 8-201 0 Sarahy Angy. [address], [address], [place], [address], [place]. tel:[phone] [place] [facility], [address], [place], [place], [id number], [place] tel:[phone] SEC [place] Professional No Information Mar-1 1-201 0 Sarahy Angy. [address], [address], [place], [address], [place]. tel:[phone] [facility], [address], [place], [place], [id number], [place] tel:[phone] [facility] [place] No Information Aug- 0-201 0 Sarahy Angy. [address], [address], [place], [address], [place]. tel:[phone] [facility], [address], [place], [place], [id number], [place] tel:[phone] SEC [place] No Information Aug-0 4-201 0 Sarahy Angy. [address], [address], [place], [address], [place]. tel:[phone] Referring Provider: Angy Weathers, [address], [place], [place], [place]. tel:[phone] Office/outpa tient Visit, [facility], [address], [place], [place], [id number], [place] tel:[phone] SEC [facility] Professional No Information 5-201 0 Sarahy Angy. [address], [address], [place], [address], [place]. tel:[phone] Family History Family Member Type Diagnosis Age At Onset No Information Payers Payer name Insurance type Covered green party ID Rosa todd(s) [facility] CI [id number] Social History Type Description Quantity Date Captured [...]
--- OUTSIDE RECORDS SUMMARY | 2024-07-26 09:48 | XMS_ITS | Clinical Summary ---
Author Organization [facility] Address [address] [place] [address] Care Team Providers Care Elementary Librarian Name Role Phone Ange Schmitt Primary Care [...] Department Care Team Description 06/28/2024 2:30 PM PIN MACHINE OPERATOR Office Visit [place] Funding Specialist at [address] [place] [address] Rosalind Franco NP Morbid (severe) [...] on file Legal Sex Male 1:39 PM PIN MACHINE OPERATOR Gender Identity Not on file Sexual Orientation Not on file Obstetrics History Last Filed Vital Signs Vital Sign Reading Time Taken Comments Blood Pressure 151/91 06/28/2024 2:24 PM PIN MACHINE OPERATOR Pulse 76 06/28/2024 2:24 PM PIN MACHINE OPERATOR Temperature 37.1 C (98.7 F) 03/31/2022 2:23 PM CDT Respiratory Rate 18 06/28/2024 2:24 PM PIN MACHINE OPERATOR Oxygen Saturation 95% 02/03/2022 6:36 PM CDT Inhaled Oxygen Concentration - - Weight 121.6 kg (268 lb) 06/28/2024 2:24 PM PIN MACHINE OPERATOR Height 175.3 cm (5' 9 ) 06/28/2024 2:24 PM PIN MACHINE OPERATOR Body Mass Index 39.58 06/28/2024 2:24 PM PIN MACHINE OPERATOR Plan of Treatment Health Maintenance [...] patient's age to complete this topic Insurance [facility] CHOICE PLUS [facility] HMO/PPO Address: [address] [address] [place] [address] [facility] CHOICE PLUS [facility] HMO/PPO Address: [address] [address] [place] [address] Care Teams Elementary Librarian Relationship Specialty Start Date End Date Ange Schmitt PA [address] [place] [id number] PCP - General Physician Internet Merchant 04/06/23
--- OUTSIDE RECORDS SUMMARY | 2024-07-26 09:48 | XMS_ITS ---
Author Organization [facility] Address [address] [place] [address] Phone Care Team Providers Care Risk Assessor Name Role Phone SONIA ALCANTARA MD Primary Care Provider [phone] Problems Includes: Active, inactive, and resolved Problems All Visits Onset Date Resolved Date Provider Condition S tatus Presence of Artificial Knee Joint 04/21/2023 JADEN Stewart Active Last Documented On 04/21/2023 7:21AM ; [facility] Note: Left TKA on 04/20/[address] 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 DORI León MD Active Last Documented On 1 11:20AM ; [facility] Hypertension Systemic 02/01/2021 DORI HOWARD MD Active Last Documented On 1 11:21AM ; [facility] Plan of Treatment Findings Encounter Date I [...] 08/27/2023 Last Documented On 4 2:57PM ; [facility] Ordered home exercises FOLLOW UP with ALVARO RENO DO 08/27/2023 Last Documented On 4 2:57PM ; [facility] Ordered work restrictions None FOLLOW UP with KIMBERLEE Huang HANNAHROWDY 08/27/2023 Last Documented On 4 2:57PM ; [facility] I discussed with Heaven that he he [...] 07/20/2023 Last Documented On 4 11:07AM ; [facility] Ordered fit for work FOLLOW UP with ALVARO Huang JULIETTE DO 07/20/2023 Last Documented On 4 11:07AM ; [facility] Ordered follow-up for re-exa mination twelve months FOLLOW UP with ALVARO Huang JULIETTE PEDROZA 07/20/2023 Last Documented On 4 11:07AM ; [facility] Ordered home exercises FOLLOW UP with ALVARO Huang HANNAH RENO DO 07/20/2023 Last Documented On 4 11:07AM ; [facility] Ordered work restrictions FOLLOW UP with ALVARO Huang JULIETTE DO 07/20/2023 Last Documented On 4 11:07AM ; [facility] I discussed with Heaven that at this [...] 06/11/2023 Last Documented On 4 1:59PM ; [facility] Ordered home exercises FOLLOW UP with ALVARO Huang HANNAH RENO DO 06/11/2023 Last Documented On 4 1:59PM ; [facility] Ordered physical therapy FOLLOW UP with ALVARO Huang HANNAHROWDY DO 06/11/2023 Last Documented On 4 1:59PM ; [facility] I am still concerned based o n [...] 06/02/2023 Last Documented On 3 1:32PM ; [facility] I did have a long conversati on [...] 05/04/2023 Last Documented On 3 1:49PM ; [facility] I had a long discussion kaushal epstein with Heaven concerning treatment options, He has done well with his weight loss and I am going to offer him a total knee arthroplasty 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 He was shown a model of the [place] total knee as well. I did go over the gap/balance technique as well. All questions were asked and answered. He is aware of the intense formal phyiscal therapy that is required as well. He will be seen back following surgery for a two week post op appointment FOLLOW UP with ALVARO Sal JULIETTE PEDROZA 02/12/2023 Last Documented On 3 3:18PM ; [facility] Ordered home exercises FOLLOW UP with ALVARO Huang HANNAH RENO DO 02/12/2023 Last Documented On 3 3:18PM ; [facility] Ordered physical therapy FOLLOW UP with ALVARO YOUNGROWDY PEDROZA 02/12/2023 Last Documented On 3 3:18PM ; [facility] Requested total knee arthroplasty -Left FOLLOW U P with ALVARO YOUNGROWDY PEDROZA 02/12/2023 Last Documented On 3 3:18PM ; [facility] I discussed with Heaven that prior to [...] 11/06/2022 Last Documented On 3 2:47PM ; [facility] Ordered home exercises FOLLOW UP with ALVARO Huang HANNAH RENO DO 11/06/2022 Last Documented On 3 2:47PM ; [facility] Ultimately, he wants to have a left [...] 09/17/2022 Last Documented On 3 4:18PM ; [facility] Ordered follow-up visit 3 mon NEW PATIENT VISIT with DORI HILL MD 08/23/2019 Last Documented On 0 1:19PM ; [facility] Ordered return to the clinic if condition worsens or new symptoms arise NEW PATIENT VISIT with DORI HILL MD 08/23/2019 Last Documented On 0 1:19PM ; [facility] PLAN [Use for s.o.a.p. note free text] NEW PATIENT VISIT with DORI HILL MD 08/23/2019 Last Documented On 0 1:19PM ; [facility] Instructions to patient No reduced physical activity -release to full activities Last Documented On 4 2:54PM ; [facility] No reduced physical activity -release to full activities Last Documented On 4 11:04AM ; [facility] No reduced physical activity -release to full activities Last Documented On 4 11:04AM ; [facility] Watch for signs/symptoms of infection Last Documented On 4 11:04AM ; [facility] Intervention and counseling on cessation of tobacco use Last Documented On 3 10:39AM ; [facility] Intervention and counseling on cessation of tobacco use Last Documented On 3 2:52PM ; [facility] Intervention and counseling on cessation of tobacco use Last Documented On 3 2:00PM ; [facility] Intervention and counseling on cessation of tobacco use Last Documented On 1 2:13PM ; [facility] Education and Decision Aids were provided during visit for: Patient education about orth opedic activities Last Documented On 4 2:54PM ; [facility] Patient education about orth opedic activities Last Documented On 4 11:04AM ; [facility] Post-op teaching Last Documented On 4 11:04AM ; [facility] Post-op teaching Last Documented On 4 1:50PM ; [facility] Patient education about orth opedic activities Last Documented On 3 3:01PM ; [facility] Patient education about orth opedic activities Last Documented On 3 2:45PM ; [facility] Assessments Includes: Assessments for all patient encounters Findings Encounter Date Intact left knee prosthesis FOLLOW UP with ALVARO DENSON DO 08/27/2023 Last Documented On 4 2:57PM ; [facility] Intact prosthesis post op FOLLOW UP with ALVARO DENSON DO 07/20/2023 Last Documented On 4 11:07AM ; [facility] Assessment of activities of daily living FOLLOW UP with ALVARO DENSON DO 07/20/2023 Last Documented On 4 11:07AM ; [facility] Intact prosthesis post op FOLLOW UP with ALVARO Sal JULIETTE PEDROZA 06/11/2023 Last Documented On 4 1:59PM ; [facility] Assessment of presence of ar tificial knee joint FOLLOW UP with JADEN Stewart 06/02/2023 Last Documented On 3 1:32PM ; [facility] Assessment of presence of ar tificial knee joint FOLLOW UP with JADEN Stewart 05/04/2023 Last Documented On 3 1:49PM ; [facility] [R39.15 - Urgency of urinati on] urinary urgency HOSPITAL FOLLOW UP EXAM with MADELINE LEZAMA PA-C 04/28/2023 Last Documented On 3 3:48PM ; [facility] Assessment of presence of ar tificial knee joint HOSPITAL FOLLOW UP EXAM with MADELINE LEZAMA PA-C 04/28/2023 Last Documented On 3 3:48PM ; [facility] Assessment of presence of ar tificial knee joint RX ISSUE/REFILL with JADEN Stewart 04/21/2023 Last Documented On 3 7:25AM ; [facility] [Z01.818 - Encounter for ot er preprocedural examination] Pre-op exam PREOP EXAM with MADELINE LEZAMA PA-C 03/30/2023 Last Documented On 3 8:45AM ; [facility] Localized primary osteoarthr itis of left knee PREOP EXAM with MADELINE STARR-C 03/30/2023 Last Documented On 3 8:45AM ; [facility] Osteoarthritis of knee -left FOLLOW UP with KEVI N G KOTH DO 02/12/2023 Last Documented On 3 3:18PM ; [facility] Osteoarthritis of left knee FOLLOW UP with ALVARO G KOTH DO 02/12/2023 Last Documented On 3 3:18PM ; [facility] Osteoarthritis of knee -left FOLLOW UP with KEVI N G KOTH DO 11/06/2022 Last Documented On 3 2:47PM ; [facility] Osteoarthritis of left knee FOLLOW UP with ALVARO G KOTH DO 11/06/2022 Last Documented On 3 2:47PM ; [facility] Localized primary osteoarthr itis of left knee ORTHO ESTABLISHED PATIENT with JADEN Stewart 09/17/2022 Last Documented On 3 4:18PM ; [facility] Plantar verrucous carcinoma PROBLEM VISI T with WILLY BELTRAN [employer]-C 01/09/2022 Last Documented On 2 4:35PM ; [facility] [M79.641 - Pain in right choi d] pain in right hand PROBLEM VISIT with MADELINE LEZAMA PA-C 08/28/2021 Last Documented On 2 2:41PM ; [facility] Hypertension PROBLEM VISIT with DORI VIDAL MD 02/01/2021 Last Documented On 1 11:22AM ; [facility] Organic sleep apnea PROBLEM VISIT with DORI KRUGER MD 02/01/2021 Last Documented On 1 11:22AM ; [facility] Instructions Includes: Instructions for all patient encounters Instructions to patient No reduced physical activity -release to full activities Last Documented On 4 2:54PM ; [facility] No reduced physical activity -release to full activities Last Documented On 4 11:04AM ; [facility] No reduced physical activity -release to full activities Last Documented On 4 11:04AM ; [facility] Watch for signs/symptoms of infection Last Documented On 4 11:04AM ; [facility] Intervention and counseling on cessation of tobacco use Last Documented On 3 10:39AM ; [facility] Intervention and counseling on cessation of tobacco use Last Documented On 3 2:52PM ; [facility] Intervention and counseling on cessation of tobacco use Last Documented On 3 2:00PM ; [facility] Intervention and counseling on cessation of tobacco use Last Documented On 1 2:13PM ; [facility] Education and Decision Aids were provided during visit for: Patient education about orth opedic activities Last Documented On 4 2:54PM ; [facility] Patient education about orth opedic activities Last Documented On 4 11:04AM ; [facility] Post-op teaching Last Documented On 4 11:04AM ; [facility] Post-op teaching Last Documented On 4 1:50PM ; [facility] Patient education about orth opedic activities Last Documented On 3 3:01PM ; [facility] Patient education about orth opedic activities Last Documented On 3 2:45PM ; [facility] Medical Equipment - Implanted Devices Includes: Current and historical Devices No Medical Equipment Recorded Medications Includes: Current and historical Medications Current Medications (continue as prescribed) Aspirin 81 81 MG Oral Tablet Delayed Release 3 Provider: Diagnosis: Last Documented On 03/30/2023 2:51PM By Lizzie BROWN ; [facility] Metoprolol Tartrate 50 MG Oral Tablet 01/31/2023 Pro vider: JENIFER S DATILLO ACNP Diagnosis: Last Documented On 03/30/2023 2:51PM By Lizzie BROWN ; [facility] Past Medications on file HYDROcodone-Acetaminophen 7. 5-325 MG Oral Tablet 05/04/2023 - 07/20/2023 Provider: JADEN Stewart Diagnosis: Presence of left artificial knee joint 1-2 every 4-6 hours as needed Last Documented On 07/20/2023 9:56AM By VALERIA ESPOSITO LPN ; [facility] Lovenox 30 MG/0.3ML Injection Solution Prefilled Syringe 04/21/2023 - 05/05/2023 Provider: JADEN Stewart Diagnosis: Presence of left artificial knee joint as directed one injection tw ice a day for 2 weeks after surgery Last Documented On 3 7:36AM By Jaden Manrique PA-C ; [facility] Celecoxib 200 MG Oral Capsule 04/21/2023 - 07/20/2023 Provider: JADEN Stewart Diagnosis: Presence of left artificial knee joint 1 capsule daily Last Documented On 07/20/2023 9:56AM By VALERIA ESPOSITO LPN ; [facility] HYDROcodone-Acetaminophen 7. 5-325 MG Oral Tablet 04/21/2023 - 05/04/2023 Provider: JADEN Stewart Diagnosis: Presence of left artificial knee joint 1-2 every 4-6 hours as needed Last Documented On 3 11:30AM By Jaden Manrique PA-C ; [facility] predniSONE 20 MG Oral Tablet 08/28/2021 - 01/09/2022 Provider: MADELINE Epstein PA-C Diagnosis: Pain in right agustin nd take 3 tabs for 3 days, then 2 tabs for 3 days, then 1 tab for 3 days then stop Last Documented On 01/09/2022 9:17AM By Yash BROWN ; [facility] Metoprolol Succinate ER 25 M G Oral Tablet Extended Release 24 Hour 08/23/2019 - 03/30/2023 Provider: Diagnosis: ONE DAILY Last Documented On 03/30/2023 2:51PM By Lizzie BROWN ; [facility] Medications Administered Includes: Administered Medications in patient's chart No Administered Medications Recorded Vital Signs Includes: Vital Signs from 07/26/2023 through 07/26/2024 Vital Name 08/27/2023 02:47P Height (in) 69 Last Documented: On 08/27/2023 2:47PM ; [facility] Results Includes: Results from 07/26/2023 through 07/26/2024 No Results Recorded For Specified Dates History of Present Illness History of Present Illness not supported for this document type No History of Present Illness Recorded Social History Description Last Updated Social history unchanged 11/06/2022 Last Documented On 3 2:47PM ; [facility] Tobacco non-user 01/09/2022 Last Documented On 2 4:35PM ; [facility] . alchol-none, tobacco - none, dr stinson- none 09/21/2019 Last Documented On 0 1:19PM ; [facility] Smoking status : Never smoker 08/23/2019 Last Documented On 0 1:19PM ; [facility] Medical History Includes: Medical History in patient's chart Description Last Updated Prior surgery 08/27/2023 Last Documented On 4 2:57PM ; [facility] Total Left Knee Replacement on 04/20/[address] Alvrao Denson 04/21/2023 Last Documented On 3 7:25AM ; [facility] Has had no fall in the last 12 months. 0 01/09/2022 Last Documented On 2 4:35PM ; [facility] Family History Includes: Family History in patient's chart Description Last Updated Family history unchanged 11/06/2022 Last Documented On 3 2:47PM ; [facility] CAD, prostate cancer 09/21/2019 Last Documented On 0 1:19PM ; [facility] Review of Systems Review of Systems not [...] Documented On 08/27/2023 2:46PM ; [facility] Note: throat closing Encounters Includes: Encounters from 07/26/2023 through 07/26/2024 Encounter Provider Location Date Check-In Time Check- Out Time Diagnosis FOLLOW UP ALVARO DENSON DO [facility] 4 2:44PM 2:56PM Assessment [use For S.o.a.p. Note Free Text] Insurance Includes: Active Insurance Policies Plan Name Member ID Group # Subscriber Relationship Effect aisha Dates 1 - [facility] [id number] [employer] Self Clinical Notes Includes: Signed Clinical Notes starting from 06/27/2022 * Progress note Date Encounter Last Documented by 08/27/2023 FOLLOW UP Last documented on 08/27/2023; 2:57 PM, Tarah BROWN; [facility] Active Problems & Conditions - [...]
--- OUTSIDE RECORDS SUMMARY | 2024-07-26 09:48 | XMS_ITS | Patient Health Summary ---
Author Organization [facility] Address [address] [place] [address] Care Team Providers Care Mentally Impaired Teacher Name Role Phone Unknown, Provider Primary Care Provider Unavaila ble Note from [facility],non-owned Affiliates and Associated Physician Practices is amultiple site organization consisting of ambulatory clinics and hospital sitesin [place], [place], [place] and [place]. This disclosure is being madepursuant to the Care Everywhere program and may not contain all informatio navailable regarding this patient. Last updated 18.[facility] Allergies No known active allergies Medications * [...] Comments Blood Pressure 122/70 06/02/2016 4:17 PM PILATES COORDINATOR Pulse 86 06/02/2016 4:17 PM PILATES COORDINATOR Temperature 37.6 C (99.7 F) 06/02/2016 4:17 PM PILATES COORDINATOR Respiratory Rate 18 06/02/2016 4:17 PM PILATES COORDINATOR Oxygen Saturation 97% 06/02/2016 4:17 PM PILATES COORDINATOR Inhaled Oxygen Concentration - - Weight 124.7 kg (275 lb) 06/02/2016 4:17 PM PILATES COORDINATOR Height 175.3 cm (5' 9 ) 06/02/2016 4:17 PM PILATES COORDINATOR Body Mass Index 40.61 06/02/2016 4:17 PM PILATES COORDINATOR Procedures * STREP A SCREEN - POINT OF CARE (AMB) STL(Performed 06/02/2016) Performed for Strep throat Results * (ABNORMAL) STREP A SCREEN (06/02/2016) Strep A Rapid POCT Positive(A) Negative Strep A Internal Control Present Lot # [id number] Expiration Date Throat ENTIRE THROAT (SURFACE REGION OF NECK) / Unknown 06/02/2016 Ester Jauregui SUPERINTENDENT [facility] - POINT OF CARE ORDERABLES Care Teams Mentally Impaired Teacher Relationship Specialty Start Date End Date Unknown, Provider PCP - General 06/02/16
--- OUTSIDE RECORDS SUMMARY | 2024-07-26 09:48 | XMS_ITS ---
Care Plan - [facility] Created on: July 26, 2024 HEAVEN HAIR JR : 1970 Sex: Male Author Organization [facility] Address [address] [place] [address] Phone Care Team Providers Care Graphics Edit Technician Name Role Phone MARICRUZ PARIS, SONIA Perez Primary Care Provider [phone]
--- OUTSIDE RECORDS SUMMARY | 2024-07-26 09:49 | XMS_ITS | Clinical Summary ---
Author Organization [facility] Address [address] [place] [address] Phone Care Team Providers Care Conveyor Belt Operator Name Role Phone SONIA ALCANTARA MD Primary Care Provider [phone] Reason for Visit and Chief Complaint Date [...] Documented On 04/21/2023 7:21AM ; [facility] Note: Left TKA on 04/20/[address] 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 Plan of Treatment - Home exercises - Last Documented On 08/27/2023 2:57PM ; [facility] - Work restrictions None - Last Documented On 08/27/2023 2:57PM ; [facility] I discussed with Heaven [...] - Last Documented On 08/27/2023 2:57PM ; [facility] Instructions to patient No reduced physical activity -release to full activities Last Documented On 4 2:54PM ; [facility] Education and Decision Aids were provided during visit for: Patient education about orth opedic activities Last Documented On 4 2:54PM ; [facility] Assessments Includes: Assessments from this encounter Findings Intact left knee prosthesis. - Last Documented On 08/27/2023 2:57PM ; [facility] Instructions Includes: Instructions from this encounter Instructions to patient No reduced physical activity -release to full activities Last Documented On 4 2:54PM ; [facility] Education and Decision Aids were provided during visit for: Patient education about orth opedic activities Last Documented On 4 2:54PM ; [facility] Medical Equipment - Implanted Devices Includes: Current Devices No Medical Equipment Recorded Medications Includes: Medications discussed during this encounter and other current Medications Current Medications (continue as prescribed) Aspirin 81 81 MG Oral Tablet Delayed Release 3 Provider: Diagnosis: Last Documented On 03/30/2023 2:51PM By Lizzie BROWN ; [facility] Metoprolol Tartrate 50 MG Oral Tablet 01/31/2023 Pro vider: JENIFER CARDOSO ACNP Diagnosis: Last Documented On 03/30/2023 2:51PM By Lizzie BROWN ; [facility] Past Medications on file Lovenox 30 MG/0.3ML Injection Solution Prefilled Syringe 04/21/2023 - 05/05/2023 Provider: JADEN Stewart Diagnosis: Presence of left artificial knee joint as directed one injection tw ice a day for 2 weeks after surgery Last Documented On 3 7:36AM By Jaden Manrique PA-C ; [facility] Medications Administered Includes: Administered Medications from this encounter No Administered Medications Recorded Vital Signs Includes: Vital Signs from this encounter Vital Name 08/27/2023 02:47P Height (in) 69 Last Documented: On 08/27/2023 2:47PM ; [facility] Results Includes: Results discussed during this encounter [...] 11/06/2022 Last Documented On 4 2:46PM ; [facility] Tobacco non-user 01/09/2022 Last Documented On 4 2:46PM ; [facility] . alchol-none, tobacco - none, dr stinson- none 09/21/2019 Last Documented On 4 2:46PM ; [facility] Smoking status : Never smoker 08/23/2019 Last Documented On 4 2:46PM ; [facility] Procedures and Surgical History Includes: Procedures from this encounter Procedures Code Diagnosis Performing Provider Service L ocation Service Date Previously treated with Surgery which helped Last Documented On 4 2:50PM ; [facility] Previously treated with Medication-which helped Last Documented On 4 2:50PM ; [facility] Previously treated with Physical Therapy -which helped Last Documented On 4 2:50PM ; [facility] x-ray of knee was performed intact left knee implant Last Documented On 4 2:56PM ; [facility] reviewed a complete knee x-ray with standing vie ws -of left knee [id number] Last Documented On 4 2:56PM ; [facility] RADIOGRAPH READING: Radiogra phs obtained previously of the left knee are reviewed, These show a [place] PS knee is in good position and alignment. No evidence of loosening Last Documented On 4 2:56PM ; [facility] Medical History Includes: Medical History addressed during this encounter Description Last Updated Prior surgery 08/27/2023 Last Documented On 4 2:57PM ; [facility] Total Left Knee Replacement on 04/20/[address] Alvaro Denson 04/21/2023 Last Documented On 4 2:46PM ; [facility] Has had no fall in the last 12 months. 0 01/09/2022 Last Documented On 4 2:46PM ; [facility] Family History Includes: Family History addressed during this encounter Description Last Updated Family history unchanged 11/06/2022 Last Documented On 4 2:46PM ; [facility] CAD, prostate cancer 09/21/2019 Last Documented On 4 2:46PM ; [facility] Review of Systems Includes: Review of [...] Active Last Documented On 08/27/2023 2:46PM ; [facility] Note: throat closing Encounters Encounter Provider Location Date Check-In Time Check- Out Time Diagnosis FOLLOW UP ALVARO DENSON DO [facility] 4 2:44PM 2:56PM Assessment [use For S.o.a.p. Note Free Text] Insurance Includes: Active Insurance Policies Plan Name Member ID Group # Subscriber Relationship Effect aisha Dates 1 - [facility] [id number] HE[employer] JR Self Clinical Notes Includes: Clinical Notes from this encounter * Progress note Date Encounter Last Documented by 08/27/2023 FOLLOW UP Last documented on 08/27/2023; 2:57 PM, Tarah BROWN; [facility] Active Problems & Conditions - [...] left knee are reviewed, These show a [place] PS knee is in good position and [...]
--- OUTSIDE RECORDS SUMMARY | 2024-07-26 09:49 | XMS_ITS | Clinical Summary ---
Author Organization [facility] Address [address] [place] [address] Phone Care Team Providers Care Wharf Operator Name Role Phone SONIA ALCANTARA MD Primary Care Provider [phone] Reason for Visit and Chief Complaint CHART UPDATE Problems Includes: Problems addressed during this encounter and other active Problems All Visits Onset Date Resolved Date Provider Condition S tatus Presence of Artificial Knee Joint 04/21/2023 JADEN Stewart Active Last Documented On 04/21/2023 7:21AM ; [facility] Note: Left TKA on 04/20/[address] 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 DORI León MD Active Last Documented On 1 11:20AM ; [facility] Hypertension Systemic 02/01/2021 DORI HOWARD MD Active Last Documented On 1 11:21AM ; [facility] Plan of Treatment Pending Tests Order Diagnosis Results Due Ordering P rovider Therapy - Physical Therapy Knee Presence of left artificial knee joint 07/20/23 THUY DENSON DO Last Documented On 4 3:35PM ; [facility] Assessments Includes: Assessments from this encounter [...] LPN ; [facility] Celecoxib 200 MG Oral Capsule Provider: JADEN Stewart Diagnosis: Presence of left artificial knee joint Last Documented On 07/20/2023 9:56AM By VALERIA ESPOSITO LPN ; [facility] Current Medications (continue as prescribed) Aspirin 81 81 MG Oral Tablet Delayed Release Provider: Diagnosis: Last Documented On 03/30/2023 2:51PM By Lizzie BROWN ; [facility] Metoprolol Tartrate 50 MG Oral Tablet 01/31/2023 Pro vider: JENIFER S DATHU ACNP Diagnosis: Last Documented On 03/30/2023 2:51PM By Lizzie BROWN ; [facility] Medications Administered Includes: Administered Medications [...] 2:46PM ; [facility] Note: throat closing Encounters Encounter Provider Location Date Check-In Time Check-Out Time Diagnosis CHART UPDATE THUY DENSON 07/20/2023 11:07AM 11:59PM Insurance Includes: Active Insurance Policies Plan Name Member ID Group # Subscriber Relationship Effect aisha Dates 1 - [facility] [id number] HEAVEN [employer]IR JR Self Clinical Notes Includes: Clinical Notes from this encounter No Clinical Notes Recorded
--- OUTSIDE RECORDS SUMMARY | 2024-07-26 09:49 | XMS_ITS | Clinical Summary ---
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 - Last Documented On 06/11/2023 1:59PM ; [facility] Instructions Includes: Instructions from this encounter Education and Decision Aids were provided during visit for: Post-op teaching Last Documented On 4 1:50PM ; [facility] Medical Equipment - Implanted Devices Includes: Current Devices No Medical Equipment Recorded Medications Includes: Medications discussed during this encounter and other current Medications Current Medications (continue as prescribed) Aspirin 81 81 MG Oral Tablet Delayed Release 3 Provider: Diagnosis: Last Documented On 03/30/2023 2:51PM By Lizzie BROWN ; [facility] Metoprolol Tartrate 50 MG Oral Tablet 01/31/2023 Pro vider: JENIFER CARDOSO ACNP Diagnosis: Last Documented On 03/30/2023 2:51PM By Lizzie BROWN ; [facility] Past Medications on file Lovenox 30 MG/0.3ML Injection Solution Prefilled Syringe 04/21/2023 - 05/05/2023 Provider: JADEN Stewart Diagnosis: Presence of left artificial knee joint as directed one injection tw ice a day for 2 weeks after surgery Last Documented On 7:36AM By Jaden Manrique PA-C ; [facility] Medications Administered Includes: Administered Medications from this encounter No Administered Medications Recorded Vital Signs Includes: Vital Signs from this encounter Vital Name 06/11/2023 01:08P 06/11/2023 12: 57P Blood Pressure Sitting (mmHg) 146/94 Pulse Rate-Sitting (bpm) 86 Weight (lb) 271 Height (in) 69 Last Documented: On 06/11/2023 1:13PM ; [facility] On 06/11/2023 1:07PM ; [facility] Results Includes: Results discussed during [...] anesthesia. We did have to place a [place] PS total knee at the time of his surgery due to his ligaments not functioning as well as they should with a prosthesis in place Social History Description Last Updated Social history unchanged 11/06/2022 Last Documented On 4 12:57PM ; [facility] Tobacco non-user 01/09/2022 Last Documented On 4 12:57PM ; [facility] . alchol-none, tobacco - none, dr stinson- none 09/21/2019 Last Documented On 4 12:57PM ; [facility] Smoking status : Never smoker 08/23/2019 Last Documented On 4 12:57PM ; [facility] Procedures and Surgical History Includes: Procedures from this encounter Procedures Code Diagnosis Performing Provider Service L ocation Service Date continue physical therapy 92175 Last Documented On 4 1:50PM ; [facility] use of tobacco assessment performed 1000F Last Documented On 4 1:13PM ; [facility] review of medications documented 1160F Last Documented On 4 1:13PM ; [facility] reviewed x-ray of knee RADIO GRAPH READING: Previous radiographs are reviewed of the left knee. These show good position and alignment of the Georgette total knee prosthesis. This is a PS knee. All components remain in good position and alignment Last Documented On 4 1:50PM ; [facility] Medical History Includes: Medical History addressed during this encounter Description Last Updated Total Left Knee Replacement on 04/20/[address] Thuy Denson 04/21/2023 Last Documented On 4 12:57PM ; [facility] Has had no fall in the last 12 months. 0 01/09/2022 Last Documented On 4 12:57PM ; [facility] Family History Includes: Family History addressed during this encounter Description Last Updated Family history unchanged 11/06/2022 Last Documented On 4 12:57PM ; [facility] CAD, prostate cancer 09/21/2019 Last Documented On 4 12:57PM ; [facility] Review of Systems Includes: Review of Systems [...] Active Last Documented On 08/27/2023 2:46PM ; [facility] Note: throat closing Encounters Encounter Provider Location Date Check-In Time Check- Out Time Diagnosis FOLLOW UP THUY DENSON DO [facility] 4 12:51PM 1:57PM Assessment [use For S.o.a.p. Note Free Text] Insurance Includes: Active Insurance Policies Plan Name Member ID Group # Subscriber Relationship Effect aisha Dates 1 - [facility] [id number] HEAVEN [employer]IR Self Clinical Notes Includes: Clinical Notes from this encounter * Progress note Date Encounter Last Documented by 06/11/2023 FOLLOW UP Last documented on 06/11/2023; 1:59 PM, Tarah BROWN; [facility] Active Problems & Conditions - I10 [...] show good position and alignment of the [place] total knee prosthesis. 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
[2024-07-26 10:24] LABS: D Dimer 2.26 ug/mL (<0.48)
[2024-07-26 10:44] LABS: Influenza A QL RT-PCR Negative (Negative); Influenza B QL RT-PCR Negative (Negative); RSV RNA, RT-PCR Negative (Negative); SARS-CoV-2 RNA PCR Negative (Negative)
--- NOTE | 2024-07-26 12:00 | ECG_ITS ---
Test Date: 2024-07-26 12:05:15 Measurements Intervals [place] Rate: 78 P: -15 DE: 113 QRS: 60 QRSD: 102 T: 58 QT: 358 QTc: 410 Interpretive Statements SINUS RHYTHM BASELINE ARTIFACT- I, II, AVR, V1 NORMAL ECG Compared to ECG 07/26/2024 09:12:31 NO SIGNIFICANT CHANGE Electronically Signed On 07-26-2024 17:42:05 [employer] by Juan Pablo Worley D.O.
[2024-07-26 12:34] LABS: Troponin I < 0.012 ng/mL (0.000-0.034)
[2024-07-26 13:24] VITALS: BP 149/85; PULSE 80; RESP 18; TEMP 36.6; O2SAT 99
== END 2024-07-26 13:24 | disposition home or self-care (01) ==
PROVIDERS: Family Medicine; Emergency Provider Physician Assistant; PCP Internal Medicine Cardiovascular Disease
DX: R07.9 Chest pain, unspecified (principal); Z20.822 Contact with and (suspected) exposure to COVID-19
CPT/HCPCS: 36415; 71046; 71275; 80053; 83690; 84484; 85025; 85380; 85610; 85730; 87637; 93005; 99284; A9270; Q9967